=== PATIENT | female | born 1960 | race Caucasian/White ===

== ENCOUNTER 2017-10-06 22:41 | Emergency (ER) | payer MEDICAID, SELFPAY ==
[2017-10-06 22:43] VITALS: BP 135/61; PULSE 62; PULSE 65; RESP 14; TEMP 36.5; O2SAT 98; BMI 37.2
--- NOTE | 2017-10-06 23:12 | CT_ITS ---
STUDY: CT BRAIN WITHOUT CONTRAST REASON FOR EXAM: Female, 57 years old. Left facial numbness and blurry vision RADIATION DOSAGE (If Supplied By Facility): CTDIvol = ( 44.99 ) mGy, DLP = ( 796.11 ) mGycm TECHNIQUE: Transaxial CT imaging of the brain was performed without administration of intravenous contrast material. Individualized dose optimization techniques were used for this CT. COMPARISON: None. FINDINGS: Normal soft tissue structures. Normal calvarium. Normal size ventricles and extra-axial spaces for the patient's age. Normal white matter tracts of the cerebral hemispheres. Normal basal ganglia and thalami. Normal brainstem. Normal cerebellum. There is no intracranial hemorrhage. There are no findings of an acute ischemic infarction. There is an air-fluid level in the bilateral maxillary sinuses sphenoid sinuses ethmoid sinuses. There is an air-fluid level within the frontal sinuses. CT/Brain/Head without Contrast IMPRESSION: Mild to moderate acute appearing pansinusitis. No evidence of acute hemorrhage infarct or edema. Electronically Signed: Mary Gold MD at 0:00 EST Tel , Service support ,
--- NOTE | 2017-10-06 23:12 | EKG12_ITS ---
Test Reason : Blood Pressure : / mmHG Vent. Rate : 060 BPM Atrial Rate : 060 BPM P-R Int : 174 ms QRS Dur : 084 ms QT Int : 440 ms P-R-T Axes : 051 002 028 degrees QTc Int : 440 ms Normal sinus rhythm Normal ECG Confirmed by GEO SANDY, SREE ([id number]), magazine editor YUDELKA KLINE ([id number]) on 10/07/2017 1:45:05 PM Referred By: BENJI Confirmed By:SREE GUARDADO MD
--- NOTE | 2017-10-06 23:13 | RAD_ITS ---
STUDY: X-RAY CHEST REASON FOR EXAM: Female, 57 years old. Numbness right side face visual disturbance history of TIA TECHNIQUE: PA and lateral views of the chest. COMPARISON: April 28, 2014 chest x-ray FINDINGS: There is mild central bronchiectasis suggested. The lung markings are stable. There is no demonstrated pleural abnormality. There is borderline cardiomegaly. Normal mediastinum and ziggy. Normal visualized pulmonary arteries. Normal visualized aortic arch and descending thoracic aorta. There are diffuse degenerative changes of the visualized thoracic spine. Normal visualized ribs, clavicles, and shoulders. There is no demonstrated abnormality of the visualized soft tissue structures of the upper abdomen. RAD/Chest PA and Lateral IMPRESSION: Degenerative changes, as described above. No demonstrated acute cardiopulmonary process. Electronically Signed: Mary Gold MD at 0:10 EST Tel , Service support ,
[2017-10-06 23:22] VITALS: BP 135/75; PULSE 80; RESP 14; O2SAT 99
[2017-10-06 23:38] LABS: Absolute Lymphocyte Count 2.03 X10^3/ul (0.83-4.51); Absolute Neutrophil Count 0.9 X10^3/uL (2.0-7.7); Basophil# 0.03 X10^3/uL; Basophil% 0.9 % (0-1); Eosinophil# 0.11 X10^3/uL; Eosinophils% 3.2 % (0-5); Hematocrit 36.8 % (37-47); Hemoglobin 12.3 g/dl (12.0-15.0); Lymphocyte # 2.03 X10^3/ul (4.0); Mean Corp Hgb Conc 33.4 g/gl (32-36); Mean Corpuscular Hgb 28.7 pg (27.0-32.0); Mean Corpuscular Volume 85.8 fL (81-99); Mean Platelet Vol. 9.6 fl (6.2-12.0); Monocyte# 0.37 X10^3/uL; Monocyte% 10.8 % (0-10); Neutrophil % 26.1 % (47-70); Platelet Count 187 K/mm3 (150-450); RBC Distribution Width CV 13.5 % (11.6-14.6); RBC Distribution Width SD 41.5 fl (35.1-43.9); Red Blood Count 4.29 M/mm3 (4.2-5.4); White Blood Count 3.4 K/mm3 (4.4-11.0)
[2017-10-06 23:40] LABS: Differential Indicated SCAN CRITERIA MET; POSITIVE COUNT NO; POSITIVE DIFFERENTIAL YES; POSITIVE MORPHOLOGY NO
[2017-10-06 23:41] LABS: Prothrombin Time (Protime)PT. 12.3 SECONDS (11.7-14.9)
[2017-10-06 23:42] VITALS: BP 122/57; PULSE 62; RESP 15; O2SAT 98
[2017-10-06 23:42] LABS: Partial Thromboplast Time 28.1 Seconds (24.1-36.2)
[2017-10-07 00:04] LABS: Anion Gap 8 (5-15); BUN 7 mg/dL (7-18); BUN/Creat Ratio 14.1 RATIO (10-20); Calcium,Total 8.3 mg/dL (8.5-10.1); Chloride 105 mmol/L (98-107); EST Glomerular Filtration Rate 136 mL/min (>60); Est Glom Filt Rate - Afr Amer 164 mL/min (>60); Glucose 169 mg/dL (74-106); Potassium 3.7 mmol/L (3.5-5.1); Sodium Level 140 mmol/L (136-145)
[2017-10-07 00:12] VITALS: BP 125/64; PULSE 50; RESP 21; O2SAT 95
[2017-10-07 00:30] VITALS: BP 128/65; PULSE 63; RESP 17; O2SAT 98
[2017-10-07 01:00] VITALS: BP 131/65; PULSE 63; RESP 15; O2SAT 99
[2017-10-07 01:30] VITALS: BP 111/56; PULSE 64; RESP 19; O2SAT 96
--- NOTE | 2017-10-07 01:59 | ED.VISSUMM ---
- ER Visit Summary Date of Service: 10/07/17 Chief Complaint: Paresthesias History of Present Illness: The patient is a 57 F presenting after about 2 hours from the onset of numbness in her left lower face along with some blurry vision from her left eye. Lasted 30 or 40 minutes and resolved and is currently resolved. She has been fighting an upper respiratory infection for the past 8 days or so she thinks it is improving. Lots of congestion. No fevers. No problems with speech or weakness/numbness of any of her extremities. No diplopia. Physical Examination: Neurologic exam is normal. Her blood pressure is in the 120s. Heart is regular, no carotid bruits, lungs are clear. No signs of head trauma. PERRLA, EOMI. NIHSS is 0. Test Results: CT shows no signs of ischemic or hemorrhagic cerebral abnormalities, but does incidentally show pansinusitis including sphenoid sinuses and several sinuses with air-fluid levels. Her EKG shows a sinus rhythm without acute ischemic abnormalities or ectopy, and the rest of her workup is largely unremarkable. Emergency Department Course and Treatment: Her ABCD 2 score is 2, I discussed with neurology Dr. Forbes, he reassures this patient that this is not a TIA. He agrees with treating sinusitis with antibiotics. Patient can follow-up with medicine. She remained asymptomatic with regards to her neurologic symptoms throughout the rest of the ED course. I did attempt to obtain CT angiography but the patient refused secondary to anaphylactic reaction and she did not want to risk doing pretreatment, which I think is okay after my discussion with neurology. I suppose it is possible her paresthesias were related to some swelling due to her pansinusitis, although there is nothing objective there. Treatment Plan: Augmentin 875 twice daily ?10 days Disposition: Discharge home Impression: Pansinusitis Transient facial paresthesias This note was generated with [employer] dictation software. It may contain incorrect words, spelling, and punctuation that were not noted in review of the chart prior to signing ED Disposition - Plan for ED Patient: Disposition: Home or Assisted Living Chief Complaint: Neuro S/Sx Instructions: ED Sinusitis Abx Tx, ED Paraesthesias Prescriptions: Amoxicillin/Potassium Clav [Augmentin 875-125 Tablet] 1 ea PO BID #20 tab Referrals: Dhaval Huerta MD [Primary Care Provider] - 3-5 Days if not improving
[2017-10-07 02:00] VITALS: BP 124/58; PULSE 62; RESP 22; O2SAT 98
--- NOTE | 2017-10-07 02:09 | ED.DCSUM_ITS ---
- ER Visit Summary Date of Service: 10/07/17 Chief Complaint: Paresthesias History of Present Illness: The patient is a 57 F presenting after about 2 hours from the onset of numbness in her left lower face along with some blurry vision from her left eye. Lasted 30 or 40 minutes and resolved and is currently resolved. She has been fighting an upper respiratory infection for the past 8 days or so she thinks it is improving. Lots of congestion. No fevers. No problems with speech or weakness/numbness of any of her extremities. No diplopia. Physical Examination: Neurologic exam is normal. Her blood pressure is in the 120s. Heart is regular, no carotid bruits, lungs are clear. No signs of head trauma. PERRLA, EOMI. NIHSS is 0. Test Results: CT shows no signs of ischemic or hemorrhagic cerebral abnormalities, but does incidentally show pansinusitis including sphenoid sinuses and several sinuses with air-fluid levels. Her EKG shows a sinus rhythm without acute ischemic abnormalities or ectopy, and the rest of her workup is largely unremarkable. Emergency Department Course and Treatment: Her ABCD 2 score is 2, I discussed with neurology Dr. Forbes, he reassures this patient that this is not a TIA. He agrees with treating sinusitis with antibiotics. Patient can follow- up with medicine. She remained asymptomatic with regards to her neurologic symptoms throughout the rest of the ED course. I did attempt to obtain CT angiography but the patient refused secondary to anaphylactic reaction and she did not want to risk doing pretreatment, which I think is okay after my discussion with neurology. I suppose it is possible her paresthesias were related to some swelling due to her pansinusitis, although there is nothing objective there. Treatment Plan: Augmentin 875 twice daily ?10 days Disposition: Discharge home Impression: Pansinusitis Transient facial paresthesias This note was generated with [employer] dictation software. It may contain incorrect words, spelling, and punctuation that were not noted in review of the chart prior to signing ED Disposition - Plan for ED Patient: Disposition: Home or Assisted Living Chief Complaint: Neuro S/Sx Instructions: ED Sinusitis Abx Tx, ED Paraesthesias Prescriptions: Amoxicillin/Potassium Clav [Augmentin 875-125 Tablet] 1 ea PO BID #20 tab Referrals: Dhaval Huerta MD [Primary Care Provider] - 3-5 Days if not improving
[2017-10-07] MEDS: Amox/Clavulanate 875 MG Tablet PO (02:33)
[2017-10-07 02:35] VITALS: BP 122/67; PULSE 63; RESP 22; O2SAT 93
== END 2017-10-07 02:36 | disposition home or self-care (01) ==
PROVIDERS: Emergency Provider Emergency Medicine; Family Provider Internal Medicine; PCP Internal Medicine
DX: J32.4 Chronic pansinusitis (principal); R20.2 Paresthesia of skin; R05 Cough; R19.7 Diarrhea, unspecified; E11.9 Type 2 diabetes mellitus without complications; I10 Essential (primary) hypertension
CPT/HCPCS: 70450; 71046; 80048; 84484; 85025; 85610; 85730; 93005; 96360; 96361; 99284; J7030; J7040; A4216

== ENCOUNTER 2018-11-22 16:13 | Emergency (ER) | payer SELFPAY ==
[2018-11-22 16:15] VITALS: BP 160/80; PULSE 66; RESP 18; TEMP 36.5; O2SAT 99; BMI 36.4
[2018-11-22 16:20] VITALS: PULSE 72; RESP 16; TEMP 36.9; O2SAT 96
--- NOTE | 2018-11-22 16:35 | EKG12_ITS ---
Test Reason : CP Blood Pressure : / mmHG Vent. Rate : 077 BPM Atrial Rate : 077 BPM P-R Int : 164 ms QRS Dur : 084 ms QT Int : 398 ms P-R-T Axes : 050 -07 041 degrees QTc Int : 450 ms Normal sinus rhythm Normal ECG Confirmed by SREE GUARDADO MD ([id number]), advertising editor RONNY HAMMER ([id number]) on 11/24/2018 1:24:16 PM Referred By: NURIS Confirmed By:SREE GUARDADO MD
--- NOTE | 2018-11-22 16:35 | RAD_ITS ---
STUDY: X-RAY CHEST REASON FOR EXAM: Female, 58 years old. Chest pain x2 days, increasing in intensity TECHNIQUE: Single AP portable view of the chest. COMPARISON: Prior study of October 06, 2017 FINDINGS: panel monitor leads are present. The lungs are clear and expanded. There is no demonstrated pleural abnormality. Normal size heart. Normal mediastinum and ziggy. Normal visualized pulmonary arteries. Normal visualized aortic arch and descending thoracic aorta. There are degenerative changes of the thoracic spine. Normal visualized ribs, clavicles, and shoulders. There is no demonstrated abnormality of the visualized soft tissue structures of the upper abdomen. RAD/Chest 1 View (Portable) IMPRESSION: Degenerative changes of the thoracic spine. No acute cardiopulmonary disease process is seen. Electronically Signed: Levi Rowe MD at 17:49 EDT , Service support ,
--- NOTE | 2018-11-22 16:36 | ED.VISSUMM ---
- ER Visit Summary Date of Service: 11/22/18 Chief Complaint: Chest pain History of Present Illness: The patient is a 58 F who reports onset of chest heaviness last evening while she was sitting at rest. She describes it to the left mid chest radiating up towards her left shoulder and down the left arm. She does state pain is worse with palpation, but also states it is worse with exertion and she gets dyspneic with exertion. She denies any recent change in activity or injury. Past history significant for diabetes, hypertension, high cholesterol. She believes her last heart cath was greater than 10 years ago. She has not had a stress test in the interval period. Physical Examination: Vital signs significant for blood pressure 160/80, otherwise unremarkable. Patient sitting upright in bed no acute distress. Head and neck examination unremarkable. Heart is regular rate and rhythm. Lung sounds are clear. She does have tenderness in the left lower parasternal region.. Abdomen is soft nontender. Extremity examination was mild muscular tenderness in the left upper arm. She has strong distal pulses and normal sensation. Test Results: EKG is sinus at 77 with no sign of acute ischemia. Portable chest x-ray shows degenerative changes in the thoracic spine. There is no acute cardiopulmonary disease. CBC and chemistry studies remarkable only for glucose of 152. Troponin is less than 0.015. Emergency Department Course and Treatment: Patient was given aspirin on arrival. On repeat evaluation she is resting comfortable. She states she does still have some pain. Her chest pain is completely reproducible with palpation of the musculature. 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 She believes a lot of this is anxiety related. The patient has had greater than 6 hours of pain with negative enzymes and EKG. Pain is reproducible I do feel she is low risk at this point. She is comfortable with discharge to home and follow-up with her primary care physician. If her pain worsens in any way or she has any other concerns she will return immediately. Treatment Plan: [] Disposition: Discharge Impression: Chest wall pain This note was generated with [employer] dictation software. It may contain incorrect words, spelling, and punctuation that were not noted in review of the chart prior to signing ED Disposition - Plan for ED Patient: Referrals: Dhaval Huerta MD [Primary Care Provider] -
[2018-11-22] MEDS: 0.9% Normal Saline 1,000 ML 150 ML IV (16:41)
[2018-11-22] MEDS: Aspirin 81 MG TAB.CHEW 324 MG PO (16:41)
[2018-11-22 16:47] LABS: Absolute Lymphocyte Count 2.96 X10^3/ul (0.83-4.51); Absolute Neutrophil Count 3.5 X10^3/uL (2.0-7.7); Basophil# 0.04 X10^3/uL; Basophil% 0.6 % (0-1); Eosinophil# 0.22 X10^3/uL; Eosinophils% 3.1 % (0-5); Hematocrit 41.3 % (37-47); Hemoglobin 14.2 g/dl (12.0-15.0); Lymphocyte # 2.96 X10^3/ul (4.0); Lymphocyte % 41.3 % (19-41); Mean Corp Hgb Conc 34.4 g/gl (32-36); Mean Corpuscular Hgb 28.6 pg (27.0-32.0); Mean Corpuscular Volume 83.3 fL (81-99); Mean Platelet Vol. 9.3 fl (6.2-12.0); Monocyte# 0.47 X10^3/uL; Monocyte% 6.6 % (0-10); Neutrophil # 3.45 X10^3/uL (2.7-7.7); Neutrophil % 48.1 % (47-70); POSITIVE COUNT NO; POSITIVE DIFFERENTIAL NO; POSITIVE MORPHOLOGY NO; Platelet Count 247 K/mm3 (150-450); RBC Distribution Width CV 13.6 % (11.6-14.6); Red Blood Count 4.96 M/mm3 (4.2-5.4); White Blood Count 7.2 K/mm3 (4.4-11.0)
[2018-11-22 16:59] LABS: Anion Gap 5 (5-15); BUN 9 mg/dL (7-18); BUN/Creat Ratio 14.1 RATIO (10-20); Calcium,Total 8.8 mg/dL (8.5-10.1); Chloride 106 mmol/L (98-107); Creatinine, Serum 0.64 mg/dL (0.55-1.02); EST Glomerular Filtration Rate 101 mL/min (>60); Est Glom Filt Rate - Afr Amer 123 mL/min (>60); Estimated Creatinine Clearance 82.74 ml/min; Glucose 152 mg/dL (74-106); Potassium 3.5 mmol/L (3.5-5.1); Sodium Level 138 mmol/L (136-145)
[2018-11-22 17:23] VITALS: BP 123/82; PULSE 58; RESP 16; O2SAT 97
--- NOTE | 2018-11-22 18:03 | ED.DEP ---
ED Disposition - Plan for ED Patient: Disposition: Home or Assisted Living Instructions: ED Strain Chest Wall Referrals: Dhaval Huerta MD [Primary Care Provider] - As soon as possible
[2018-11-22 18:09] VITALS: BP 134/66; PULSE 82; RESP 16; O2SAT 98
== END 2018-11-22 18:10 | disposition home or self-care (01) ==
PROVIDERS: Emergency Provider Emergency Medicine; Family Provider Internal Medicine; PCP Internal Medicine
DX: R07.89 Other chest pain (principal); E11.9 Type 2 diabetes mellitus without complications; I10 Essential (primary) hypertension; E78.00 Pure hypercholesterolemia, unspecified; Z86.73 Personal history of transient ischemic attack (TIA), and cerebral infarction without residual deficits
CPT/HCPCS: 71045; 80048; 84484; 85025; 93005; 96360; 96361; 99285

== ENCOUNTER → 2019-02-11 13:31 | Outpatient (CLI) | payer SELFPAY ==
--- NOTE | 2019-02-11 13:36 | BI_ITS ---
MAMMOGRAPHY - BILATERAL SCREENING 3-D TOMOSYNTHESIS REASON FOR EXAM: Female, 58 years old. Bilateral Screening 3-D tomosynthesis PERTINENT HISTORY: No significant family history. TECHNIQUE: 2-D mammograms and 3-D Tomosynthesis of the breast (s) were performed. CAD was performed. COMPARISON: April 09, 2018. FINDINGS: The breast composition is of scattered fibroglandular tissue No evidence of spiculated lesion, microcalcifications, skin thickening or nipple retraction. There are benign-appearing lymph nodes noted in the axillary areas bilaterally. Tiny benign calcifications seen in the left breast BI/SCREEN MAMM (CAD) W/HONEY BILAT IMPRESSION: No mammographic signs of malignancy. Routine yearly mammograms recommended. ASSESSMENT CATEGORY: BIRADS Category 1: Negative. A letter regarding these results will be sent to the patient by the facility within 30 days. No change since the study of April 09, 2018. FOLLOW UP RECOMMENDATION: Yearly follow up mammogram recommended. (A) Approximately 10% of breast cancers are not detected by mammography. A normal mammogram should not delay biopsy of a clinically suspicious abnormality. Electronically Signed: Kofi Yan, at 11:48 EDT Tel , Service support ,
== END ==
DX: Z12.31 Encounter for screening mammogram for malignant neoplasm of breast (principal)
CPT/HCPCS: 77063; 77067

== ENCOUNTER 2020-01-07 14:11 | Emergency (ER) | payer MEDICAID, SELFPAY ==
[2020-01-07 14:12] VITALS: BP 160/75; PULSE 65; RESP 16; TEMP 36.7; O2SAT 97; BMI 35.9
--- NOTE | 2020-01-07 14:25 | CT_ITS ---
STUDY: CT ABDOMEN AND PELVIS WITHOUT CONTRAST REASON FOR EXAM: Female, 59 years old. Abdominal pain for 2 weeks. Loose stool for 2 days. Patient not improving. RADIATION DOSAGE (If Supplied By Facility): CTDIvol = ( 22.27 ) mGy, DLP = ( 1056.97 ) mGycm TECHNIQUE: Transaxial images were obtained from the dome of the diaphragm to the symphysis pubis without oral contrast, and without intravenous contrast. Sagittal and coronal images were reconstructed. Individualized dose optimization techniques were used for this CT. COMPARISON: April 15, 2013. FINDINGS: The visualized lung bases are unremarkable. The visualized portions of the heart are within normal limits. Normal liver. The gallbladder is nonvisualized and is thought absent. There is mild extrahepatic biliary ductal dilatation, suggestive of postcholecystectomy state. Normal spleen. Normal pancreas. Normal right adrenal gland. There is slight prominence of the left adrenal gland without distinct mass. This is unchanged from the previous exam. Normal right kidney. Normal left kidney. Normal bilateral ureters. Normal visualized stomach. Normal small intestine. There is lack of distention on the distal descending and sigmoid colon. The colon is otherwise unremarkable. The appendix is visualized and appears normal. There is diffuse atherosclerotic calcification of the abdominal aorta, without a demonstrated aneurysm. Normal inferior vena cava. Normal retroperitoneum. Normal urinary bladder. Normal vaginal cuff. There is a retained left ovary. There is resolution of the prominence seen on the previous exam. There are multiple phleboliths in the pelvis without lymphadenopathy. No free air or free fluid is seen within the peritoneal cavity. Normal abdominal wall. There are diffuse degenerative changes of the visualized lumbar spine. CT/Abdomen/Pelvis without Cont IMPRESSION: 1. Nondistention of the distal descending and sigmoid colon. Possible mild colitis cannot be ruled out. 2. Resolution of the prominence and heterogeneity of the left retained ovary when compared to the previous study. 3. No other evidence of acute intra-abdominal or pelvic abnormality. There is no other major interval change. Electronically Signed: Tyrone Wolfe DO at 16:53 EDT Tel [phone], Service support ,
--- NOTE | 2020-01-07 14:41 | ED.VIS.GEN ---
History of Present Illness Chief Complaint: Abd Pain Informant: Patient Onset: Weeks Context: Gradual Onset Timing: Intermittent Current Severity: Moderate Maximum Severity: Moderate Narrative: The patient is a 59-year-old female with medical history significant for prior sciatica and neuropathy that presents to the emergency department with abdominal pain. Patient states she was having some left lower quadrant pain into her hip about 2 weeks ago. She went to the [facility]. She states that she was started on meloxicam and gabapentin. She states that the pain really did not change. She states now, she is had 2 days of loose, watery diarrhea. She denies any fevers or chills. She does admit to some bloating and cramping pain. She states is mostly in the upper quadrants. She has had prior cholecystectomy, along with hysterectomy. She does not think she is ever diverticulitis. Prior similar symptoms: No Recent Illness/Hospitalization: No Past Medical History - Allergies and Home Meds Allergies/Adverse Reactions: Allergies codeine Allergy (Verified 01/07/20 15:25) Rash ibuprofen Allergy (Verified 10/06/17 22:42) Rash shellfish derived Allergy (Verified 10/06/17 22:42) Anaphylaxis Sulfa (Sulfonamide Antibiotics) Allergy (Verified 10/06/17 22:42) Anaphylaxis strawberry [[place]] Adverse Reaction (Verified 10/06/17 22:42) Rash Primary Care Physician: Meravt Orantes [Primary Care Provider] - Prior records reviewed: Yes Past Medical History: - - DM. HTN Surgical History: cholecystectomy, hysterectomy Smoking Status: Never smoker Review of Systems General: Denies: Chills, Fever, Sweats Eyes: Denies: Visual changes - bilaterally, Diplopia ENT: Denies: Rhinorrhea, Sore throat Cardiovascular: Denies: Chest pain, Palpitations Respiratory: Denies: Dyspnea, Cough, Dyspnea on exertion Gastrointestinal: Reports: Abdominal pain, Nausea, Diarrhea. Denies: Vomiting, Melena, Hematochezia Genitourinary: Denies: Dysuria, Hematuria, Frequency Musculoskeletal: Denies: Back pain, Extremity Pain Skin: Denies: Rash, Wounds Neurological: Denies: Headache, Weakness, Numbness Physical Exam Vital Signs/Narrative: Vital Signs Temp Pulse Resp BP Pulse Ox 01/07/20 14:12 98.1 F 65 16 160/75 H 97 Inital Vital Signs reviewed: Yes General: Well nourished, Well developed, No Acute Distress Head: Normocephalic, Atraumatic Eyes: Perrl, EOMI ENT: Moist mucous membranes, No rhinorrhea Neck: Supple, Nontender Cardiovascular: Regular rate, Regular rhythm, No murmurs Respiratory: No distress, CTA bilaterally, Chest nontender Abdomen: Soft, Nondistended, Normal bowel sounds, Tender. Negative for: Guarding, Rebound tenderness Back: Nontender, Normal Inspection Extremities: Nontender, No edema Skin: Normal color, No rash Neurological: Alert, Oriented x3, Cranial nerves II-XII grossly intact, Normal Strength, Normal Sensation Psychological: Normal affect, Normal Mood Diagnostic/Tx/Re-eval Clinical Impression(s) from Imaging Studies Abdomen/Pelvis CT 01/07/20 14:25 IMPRESSION: 1. Nondistention of the distal descending and sigmoid colon. Possible mild colitis cannot be ruled out. 2. Resolution of the prominence and heterogeneity of the left retained ovary when compared to the previous study. 3. No other evidence of acute intra-abdominal or pelvic abnormality. There is no other major interval change. Electronically Signed: Tyrone Wolfe DO at 16:53 EDT Tel [phone], Service support , Abnormal Lab Results 01/07/20 01/07/20 01/07/20 15:10 15:15 15:15 WBC 7.3 RBC 4.87 Hgb 13.5 Hct 40.8 MCV 83.8 MCH 27.7 MCHC 33.1 RDW Std Deviation 40.9 RDW Coeff of Nael 13.4 Plt Count 235 MPV 9.7 Immature Gran % (Auto) 0.400 Neut % (Auto) 41.1 L Lymph % (Auto) 44.5 H [place] % (Auto) 8.7 Eos % (Auto) 4.5 Baso % (Auto) 0.8 Absolute Neuts (auto) 3.0 Absolute Lymphs (auto) 3.26 Nucleated RBC % 0 Sodium 139 Potassium 4.3 Chloride 105 Carbon Dioxide 26.0 Anion Gap 8 BUN 11 Creatinine 0.64 Estim Creat Clear Calc 81.73 Est GFR (MDRD) Af Amer 123 Est GFR (MDRD) Non-Af 101 BUN/Creatinine Ratio 17.3 Glucose 118 H Calcium 9.4 Total Bilirubin 0.70 AST 32 ALT 46 Alkaline Phosphatase 84 Total Protein 7.9 Albumin 3.8 Globulin 4.1 Albumin/Globulin Ratio 0.9 Lipase 108 Urine Color Straw Urine Clarity Clear Urine pH 6.0 Ur Specific [place] 1.015 Urine Protein Negative Urine Glucose (UA) Normal Urine Ketones Negative Urine Occult Blood Negative Urine Nitrite Positive H Urine Bilirubin Negative Urine Urobilinogen Normal Ur Leukocyte Esterase Negative Urine RBC 0 SEEN Urine WBC 0-5 SEEN Ur Squamous Epith Cells 0-5 SEEN Urine Bacteria 2+ Urine Mucus 0 SEEN - Medical Decision Making Patient presents with intermittent abdominal pain, mostly in her left lower quadrant. She does not think she is had fever. She did have loose, watery diarrhea yesterday. Screening labs were obtained and were relatively unremarkable. Patient underwent CT which was concerning for mild colitis. The patient's abdominal pain is controlled. She has no repeat tenderness on examination. I do feel that she is safe for outpatient therapy. She will be started on Cipro and Flagyl. She was counseled on concerning symptoms and reasons to return. She will be discharged home. Impression 1. Colitis ED Disposition - Plan for ED Patient: Instructions: ED Diverticulitis Prescriptions: Ciprofloxacin [Cipro] 500 mg PO BID #14 tab Prescription Printed metroNIDAZOLE [Flagyl] 500 mg PO Q8H #21 tab Prescription Printed Referrals: Mervat Orantes [Primary Care Provider] -
[2020-01-07 15:23] LABS: Mucous, Urine 0 SEEN /hpf (<or=2+); Red Blood Cells-Urine 0 SEEN /hpf (0-5)
[2020-01-07 15:26] LABS: Absolute Lymphocyte Count 3.26 X10^3/uL (0.83-4.51); Basophil# 0.06 X10^3/uL; Basophil% 0.8 % (0-1); Eosinophil# 0.33 X10^3/uL; Eosinophils% 4.5 % (0-5); Hematocrit 40.8 % (37-47); Hemoglobin 13.5 g/dL (12.0-15.0); Lymphocyte # 3.26 X10^3/ul (4.0); Lymphocyte % 44.5 % (19-41); Mean Corp Hgb Conc 33.1 g/dL (32-36); Mean Corpuscular Hgb 27.7 pg (27.0-32.0); Mean Corpuscular Volume 83.8 fL (81-99); Mean Platelet Vol. 9.7 fl (6.2-12.0); Monocyte# 0.64 X10^3/uL; Monocyte% 8.7 % (0-10); NRBC Flagged by Analyzer 0 % (0-5); Neutrophil % 41.1 % (47-70); Platelet Count 235 K/mm3 (150-450); RBC Distribution Width CV 13.4 % (11.6-14.6); RBC Distribution Width SD 40.9 fl (35.1-43.9); Red Blood Count 4.87 M/mm3 (4.2-5.4); White Blood Count 7.3 K/mm3 (4.4-11.0)
[2020-01-07] MEDS: 0.9% Normal Saline 1,000 ML 1000 ML IV (15:42)
[2020-01-07] MEDS: Ondansetron 4 MG/2 ML Vial IV (15:43)
[2020-01-07] MEDS: Morphine 4 MG/ML Syringe IV (15:43)
[2020-01-07 15:58] LABS: Color, Urine Straw (Yellow); Glucose, Dipstick Normal (Normal); Ketone-Dipstick Negative (Negative); Leukocyte Esterase-Dipstick Negative /ul (Negative); Nitrite-Dipstick Positive (Negative); Occult Blood-Urine Negative /ul (Negative); Protein-Dipstick Negative (Negative); Specific Gravity, Urine 1.015 (1.002-1.030); Urine Bilirubin Dipstick Negative (Negative); Urine Clarity Clear (Clear); Urine Urobilinogen Normal (Normal)
[2020-01-07 16:04] LABS: ALB/GLOB Ratio 0.9 RATIO (0.9-2.4); AST(SGOT) 32 U/L (15-37); Alanine Aminotransfer ALT/SGPT 46 U/L (13-56); Albumin, Serum 3.8 g/dL (3.2-5.0); Alkaline Phosphatase 84 U/L (45-117); Anion Gap 8 (5-15); BUN 11 mg/dL (7-18); BUN/Creat Ratio 17.3 RATIO (10-20); Calcium,Total 9.4 mg/dL (8.5-10.1); Chloride 105 mmol/L (98-107); Creatinine, Serum 0.64 mg/dL (0.55-1.02); EST Glomerular Filtration Rate 101 mL/min (>60); Est Glom Filt Rate - Afr Amer 123 mL/min (>60); Estimated Creatinine Clearance 81.73 ml/min; Globulin 4.1 g/dL (2.2-4.2); Glucose 118 mg/dL (74-106); Lipase 108 U/L (73-393); Potassium 4.3 mmol/L (3.5-5.1); Protein, Total 7.9 g/dL (6.4-8.2); Sodium Level 139 mmol/L (136-145)
[2020-01-07 16:24] LABS: Squamous Epithelial Cells - UA 0-5 SEEN /hpf (5-10)
[2020-01-07 16:25] LABS: White Blood Cells 0-5 SEEN /hpf (0-5)
[2020-01-07 16:26] LABS: Bacteria 2+ /hpf (None Seen)
[2020-01-07 17:31] VITALS: BP 136/72; PULSE 58; RESP 16; O2SAT 99
== END 2020-01-07 17:52 | disposition home or self-care (01) ==
PROVIDERS: Emergency Provider Emergency Medicine
DX: K52.9 Noninfective gastroenteritis and colitis, unspecified (principal); E11.9 Type 2 diabetes mellitus without complications; I10 Essential (primary) hypertension; Z88.2 Allergy status to sulfonamides; Z90.49 Acquired absence of other specified parts of digestive tract; Z90.710 Acquired absence of both cervix and uterus
CPT/HCPCS: 74176; 80053; 81001; 83690; 85025; 96361; 96374; 96375; 99284; A4216; J2405

== ENCOUNTER → 2020-03-29 10:17 | Outpatient (CLI) | payer MEDICAID, SELFPAY ==
[2020-03-17 10:00] VITALS: BMI 35.9
[2020-03-29 11:39] LABS: ALB/GLOB Ratio 0.9 RATIO (0.9-2.4); AST(SGOT) 17 U/L (15-37); Alanine Aminotransfer ALT/SGPT 36 U/L (13-56); Albumin, Serum 3.7 g/dL (3.2-5.0); Alkaline Phosphatase 91 U/L (45-117); Anion Gap 9 (5-15); BUN 10 mg/dL (7-18); BUN/Creat Ratio 16.6 RATIO (10-20); Calcium,Total 8.7 mg/dL (8.5-10.1); Chloride 104 mmol/L (98-107); Cholesterol 282 mg/dL (200); EST Glomerular Filtration Rate 108 mL/min (>60); Est Glom Filt Rate - Afr Amer 130 mL/min (>60); Glucose 148 mg/dL (74-106); High Density Lipoprotein 34 mg/dL; Potassium 3.9 mmol/L (3.5-5.1); Protein, Total 7.7 g/dL (6.4-8.2); Sodium Level 139 mmol/L (136-145); Triglycerides 927 mg/dL
[2020-03-29 11:44] LABS: Hemoglobin A1c 7.2 % (3.8-5.6)
== END ==
PROVIDERS: Visit Provider Nurse Practitioner Family
DX: E11.42 Type 2 diabetes mellitus with diabetic polyneuropathy (principal)
CPT/HCPCS: 36415; 80053; 80061; 83036

== ENCOUNTER → 2020-06-27 08:09 | Outpatient (CLI) | payer MEDICAID, SELFPAY ==
[2020-03-17 10:00] VITALS: BMI 35.9
[2020-06-27 09:30] LABS: Hemoglobin A1c 8.2 % (3.8-5.6)
[2020-06-27 09:35] LABS: Vitamin D,25 Hydroxy 24.2 ng/mL
[2020-06-27 09:37] LABS: ALB/GLOB Ratio 0.9 RATIO (0.9-2.4); AST(SGOT) 26 U/L (15-37); Alanine Aminotransfer ALT/SGPT 47 U/L (13-56); Albumin, Serum 3.7 g/dL (3.2-5.0); Alkaline Phosphatase 107 U/L (45-117); Anion Gap 7 (5-15); BUN 10 mg/dL (7-18); BUN/Creat Ratio 16.1 RATIO (10-20); Chloride 105 mmol/L (98-107); Cholesterol 241 mg/dL (200); Creatinine, Serum 0.62 mg/dL (0.55-1.02); EST Glomerular Filtration Rate 104 mL/min (>60); Est Glom Filt Rate - Afr Amer 126 mL/min (>60); Globulin 4.2 g/dL (2.2-4.2); Glucose 183 mg/dL (74-106); High Density Lipoprotein 43 mg/dL; Potassium 3.9 mmol/L (3.5-5.1); Protein, Total 7.9 g/dL (6.4-8.2); Sodium Level 140 mmol/L (136-145); Triglycerides 568 mg/dL
== END ==
PROVIDERS: Nurse Practitioner Family
DX: E11.42 Type 2 diabetes mellitus with diabetic polyneuropathy (principal)
CPT/HCPCS: 36415; 80053; 80061; 82306; 83036

== ENCOUNTER 2022-01-01 12:31 | Emergency (ER) | payer MEDICAID, SELFPAY ==
[2022-01-01 12:32] VITALS: BP 154/70; PULSE 73; RESP 16; TEMP 36.6; O2SAT 97; BMI 36.0
--- NOTE | 2022-01-01 12:51 | CT_ITS ---
STUDY: CT ABDOMEN AND PELVIS WITHOUT CONTRAST REASON FOR EXAM: Female, 61 years old. RUQ pain -- hx cholecystectomy, N/V/D RADIATION DOSAGE (If Supplied By Facility): CTDIvol = ( 21.81 ) mGy, DLP = ( 1040.81 ) mGycm TECHNIQUE: Transaxial images were obtained from the dome of the diaphragm to the symphysis pubis without oral contrast, and without intravenous contrast. Sagittal and coronal images were reconstructed. Individualized dose optimization techniques were used for this CT. COMPARISON: Comparison is made with prior study dated 01/07/2020. FINDINGS: The visualized lung bases are unremarkable. Coronary artery calcification. There is decreased attenuation of the liver consistent with steatosis. The patient is status post cholecystectomy. Normal spleen. Normal pancreas. Normal bilateral adrenal glands. Normal right kidney. Normal left kidney. Normal visualized stomach. Normal small intestine. Normal colon. There is non-visualization of the appendix. There is scattered atherosclerotic calcification of the abdominal aorta, without a demonstrated aneurysm. Normal inferior vena cava. Normal retroperitoneum. Normal urinary bladder. There is absence of the uterus consistent with a prior hysterectomy. Calcified phleboliths are seen in the pelvis. Normal abdominal wall. There are diffuse degenerative changes of the visualized lumbar spine. CT/Abdomen/Pelvis without Cont IMPRESSION: Diffuse fatty infiltration of the liver. Electronically Signed: Vinicio Webb MD at 13:45 EDT ,
--- NOTE | 2022-01-01 12:58 | ED.VIS.GI ---
HPI HPI - GI History of Present Illness Chief Complaint: Abd Pain Informant: patient Narrative Narrative: Waxing and waning right-sided upper abdominal pain starting 3 days ago worsening since yesterday. Nausea and vomiting no hematemesis total 2 episodes. Diarrhea since yesterday loose and watery and clear. Nonbloody. 5 yesterday for today. Denies recent antibiotics. History of cholecystectomy. History of partial hysterectomy. No fevers. No urinary symptoms. States unable to keep anything down. No history of colonoscopy. 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 Has not ever had IV dye in the past per patient. Hypertension, diabetes, hyperlipidemia history. Prior similar symptoms: No PFSH PFSH Medical History Abdominal pain Arthritis Diabetes Diarrhea Hypertension LUQ abdominal pain Numbness and tingling Sciatica Home Medications lisinopril 20 mg PO DAILY 04/28/14 [History Last Taken 11/22/18] metformin 1,000 mg PO BIDCM 04/28/14 [History Last Taken 11/22/18] gabapentin 100 mg PO QHS 01/07/20 [History Last Taken Unknown] acetaminophen 500 mg tablet 1,000 mg PO QHS PRN tab 03/17/20 [History Last Taken Unknown] atorvastatin 40 mg tablet 40 mg PO DAILY tab 03/17/20 [History Last Taken Unknown] ergocalciferol (vitamin D2) 1,250 mcg (50,000 unit) capsule 50,000 unit PO QWEEK cap 03/17/20 [History Last Taken Unknown] hyoscyamine sulfate [Levsin/SL] 0.125 mg PO TID PRN #10 tab 01/01/22 [Rx Last Taken Unknown] ondansetron 4 mg PO Q6H PRN #10 tab 01/01/22 [Rx Last Taken Unknown] pioglitazone [Actos] 15 mg PO DAILY 01/01/22 [History Last Taken Unknown] Allergy/AdvReac Type Severity Reaction Status Date / Time Penicillins Allergy Unknown Unknown Verified 01/01/22 12:33 codeine Allergy Rash Verified 01/01/22 12:33 ibuprofen Allergy Rash Verified 01/01/22 12:33 shellfish derived Allergy Anaphylaxis Verified 01/01/22 12:33 Sulfa (Sulfonamide Allergy Anaphylaxis Verified 01/01/22 12:33 Antibiotics) strawberry [[place]] AdvReac Rash Verified 01/01/22 12:33 Family History Mother Diabetes Father Diabetes Sister Diabetes Surgical History History of partial hysterectomy Hx of cholecystectomy Social History Smoking Status: Never smoker second hand exposure: No alcohol intake: never substance use type: does not use caffeine: Yes what type of physical activity do you participate in: none frequency: does not exercise ROS ROS ED Constitutional Constitutional ED: Denies chills, fever(s) or sweats Eyes Eyes: Denies change in vision ENT ENT ED: Denies dysphagia or sore throat Cardiovascular Cardiovascular: Denies chest pain, leg edema, palpitations or racing heartbeat Respiratory/Chest Respiratory/Chest: Denies cough, dyspnea or dyspnea on exertion Gastrointestinal Gastrointestinal: Reports abdominal pain, diarrhea, nausea and vomiting Genitourinary Genitourinary ED: Denies dysuria, hematuria or urinary frequency Musculoskeletal Musculoskeletal: Denies back pain, extremity pain or neck pain Integumentary Denies rash or wounds Neurologic Neurologic: Denies headache(s), paresthesias or weakness EXAM Physical Exam Const Vital Signs: 01/01/22 12:32 01/01/22 13:39 01/01/22 14:13 Temperature 97.9 F Temperature Source Temporal Pulse Rate 73 83 81 Respiratory Rate 16 16 18 Blood Pressure 154/70 H 144/73 H 134/59 H Blood Pressure Mean 98 96 Pulse Ox 97 95 97 Oxygen Delivery Method Room Air Room Air Positive well nourished and well developed General Appearance ED: well developed and NAD HEENT Reports dry mucous membranes HEENT Narrative: Mild dry mucosal membranes normocephalic and atraumatic Mouth ED: Yes dry mucous membranes Mouth: dry mucous membranes Eyes PERRL, EOMs intact bilaterally and conjunctivae normal General Eye ED: Yes normal appearance of both eyes Neck no lymphadenopathy and supple General: Negative for tenderness Chest Wall Chest: Negative for tenderness Resp normal respiratory effort and normal air movement Effort and Inspection: symmetric chest movement; Negative for respiratory distress Cardio regular rate, regular rhythm and no murmurs Peripheral Pulses: pulses 2+ throughout GI normal to inspection, nondistended, normoactive bowel sounds GI Narrative: tender deep palpation right upper quadrant there is no guarding or rebound no rash. Negative McBurney's. No guarding or rebound. Palpation: Negative for guarding or rebound tenderness present Back/Spine no CVA tenderness and no thoracic nor lumbar tenderness Extremity normal to inspection General Extremety ED: Negative for edema or tenderness General Extremity: Negative for edema Neuro oriented x3 and no sensory deficits noted Sensorium / Orientation: awake and alert Skin no rashes or lesions noted and no wounds MDM MDM MDM Narrative Medical decision making narrative: Patient vital stable nontoxic no guarding or rebound on abdominal exam. Vomiting and diarrhea CT scan obtained to rule out colitis. This is negative. There was a fatty liver. Denies alcohol history. Labs slight transaminitis AST 70 ALT 282. White count 4. Urine noted signs of infection however he is asymptomatic. We will send culture and will hold on treatment this time. Patient tolerating p.o. intake after treatment Zofran and Levsin. Prescription for symptom control. Follow-up with her PCP. All questions were answered. Lab Data Attestation: I reviewed the patient's lab results. Labs: Laboratory Results - last 24 hr 01/01/22 01/01/22 01/01/22 13:00 13:00 13:30 WBC 4.0 L RBC 4.80 Hgb 13.4 Hct 40.9 MCV 85.2 MCH 27.9 MCHC 32.8 RDW Std Deviation 44.1 H RDW Coeff of Nael 14.2 Plt Count 178 MPV 9.7 Immature Gran % (Auto) 0.200 Neut % (Auto) 51.2 Lymph % (Auto) 38.2 [place] % (Auto) 8.2 Eos % (Auto) 2.0 Baso % (Auto) 0.2 Absolute Neuts (auto) 2.1 Absolute Lymphs (auto) 1.54 Nucleated RBC % 0 Sodium 138 Potassium 4.4 Chloride 107 Carbon Dioxide 24.0 Anion Gap 7 BUN 10 Creatinine 0.70 Estim Creat Clear Calc 72.88 Est GFR (MDRD) Af Amer 108 Est GFR (MDRD) Non-Af 90 BUN/Creatinine Ratio 14.2 Glucose 216 H Calcium 8.7 Total Bilirubin 0.50 AST 70 H ALT 82 H Alkaline Phosphatase 80 Total Protein 7.7 Albumin 3.6 Globulin 4.1 Albumin/Globulin Ratio 0.9 Lipase 128 Urine Color Yellow Urine Clarity Clear Urine pH 5.0 Ur Specific [place] 1.020 Urine Protein 30 H Urine Glucose (UA) 100 H Urine Ketones Negative Urine Occult Blood 10 H Urine Nitrite Negative Urine Bilirubin Negative Urine Urobilinogen Normal Ur Leukocyte Esterase 100 H Urine RBC 0-5 SEEN Urine WBC 25-50 SEEN Ur Squamous Epith Cells 5-10 SEEN Urine Bacteria 4+ Hyaline Casts 0-5 SEEN Urine Mucus 0 SEEN Radiography Diagnostic Testing: Clinical Impression(s) from Imaging Studies Abdomen/Pelvis CT 01/01/22 12:51 IMPRESSION: Diffuse fatty infiltration of the liver. Electronically Signed: Vinicio Webb MD at 13:45 EDT , Discharge Plan Triage Chief Complaint: Abd Pain ED Provider: Nico Kapoor Dx/Rx/DC Orders Clinical Impression: Nausea vomiting and diarrhea, Abdominal pain, Transaminitis, Fatty liver Instructions: Abdominal Pain, Nonalcoholic Fatty Liver ..., ED Vomiting and Diarrhea ... Prescriptions: New hyoscyamine sulfate [Levsin/SL] 0.125 mg tablet, sublingual 0.125 mg PO TID PRN (Reason: abdominal discomfort) Qty: 10 RF: 0 ondansetron 4 mg tablet,disintegrating 4 mg PO Q6H PRN (Reason: nausea and vomiting) Qty: 10 RF: 0 No Action ergocalciferol (vitamin D2) 1,250 mcg (50,000 unit) capsule 50,000 unit PO QWEEK RF: 0 atorvastatin 40 mg tablet 40 mg PO DAILY RF: 0 acetaminophen [Tylenol Extra Strength] 500 mg tablet 1,000 mg PO QHS PRN (Reason: Pain) RF: 0 metformin 500 MG tablet 1,000 mg PO BIDCM RF: 0 lisinopril 10 MG tablet 20 mg PO DAILY RF: 0 gabapentin 100 MG capsule 100 mg PO QHS RF: 0 pioglitazone [Actos] 15 mg Tablet 15 mg PO DAILY RF: 0 Primary Care Provider: Dhaval Huerta Referrals: Dhaval Huerta MD [Primary Care Provider] - 3-5 Days Activity Restrictions/Additional Instructions: AST 70, ALT 82. Slightly elevated. CT scan notes fatty liver. No other acute findings. Continue oral fluids at home Zofran as needed Levsin as needed. Follow-up with your doctor for further testing as an outpatient as needed. Disposition Disposition: Home, Self Care Discharge Date/Time: 01/01/22 14:21
[2022-01-01] MEDS: 0.9% Normal Saline 1,000 ML 1000 ML IV (13:03)
[2022-01-01 13:12] LABS: Absolute Lymphocyte Count 1.54 X10^3/uL (0.83-4.51); Absolute Neutrophil Count 2.1 X10^3/uL (2.0-7.7); Basophil# 0.01 X10^3/uL; Basophil% 0.2 % (0-1); Eosinophil# 0.08 X10^3/uL; Hematocrit 40.9 % (37-47); Hemoglobin 13.4 g/dL (12.0-15.0); Lymphocyte # 1.54 X10^3/ul (0.83-4.51); Lymphocyte % 38.2 % (19-41); Mean Corp Hgb Conc 32.8 g/dL (32-36); Mean Corpuscular Hgb 27.9 pg (27.0-32.0); Mean Corpuscular Volume 85.2 fL (81-99); Mean Platelet Vol. 9.7 fl (6.2-12.0); Monocyte# 0.33 X10^3/uL; Monocyte% 8.2 % (0-10); NRBC Flagged by Analyzer 0 % (0-5); Neutrophil # 2.06 X10^3/uL (2.7-7.7); Neutrophil % 51.2 % (47-70); Platelet Count 178 K/mm3 (150-450); RBC Distribution Width CV 14.2 % (11.6-14.6); RBC Distribution Width SD 44.1 fl (35.1-43.9)
[2022-01-01] MEDS: Hyoscyamine Sulfate 0.125 MG Tablet SL (13:12)
[2022-01-01] MEDS: Ondansetron 4 MG/2 ML Vial IV (13:12)
[2022-01-01 13:31] LABS: ALB/GLOB Ratio 0.9 RATIO (0.9-2.4); AST(SGOT) 70 U/L (15-37); Alanine Aminotransfer ALT/SGPT 82 U/L (13-56); Albumin, Serum 3.6 g/dL (3.2-5.0); Alkaline Phosphatase 80 U/L (45-117); Anion Gap 7 (5-15); BUN 10 mg/dL (7-18); BUN/Creat Ratio 14.2 RATIO (10-20); Calcium,Total 8.7 mg/dL (8.5-10.1); Chloride 107 mmol/L (98-107); EST Glomerular Filtration Rate 90 mL/min (>60); Est Glom Filt Rate - Afr Amer 108 mL/min (>60); Estimated Creatinine Clearance 72.88 ml/min; Globulin 4.1 g/dL (2.2-4.2); Glucose 216 mg/dL (74-106); Lipase 128 U/L (73-393); Potassium 4.4 mmol/L (3.5-5.1); Protein, Total 7.7 g/dL (6.4-8.2); Sodium Level 138 mmol/L (136-145)
[2022-01-01 13:39] VITALS: BP 144/73; PULSE 83; RESP 16; O2SAT 95
[2022-01-01 13:43] LABS: Mucous, Urine 0 SEEN /hpf (<or=2+)
[2022-01-01 13:45] LABS: Color, Urine Yellow (Yellow); Glucose, Dipstick 100 mg/dl (Normal); Ketone-Dipstick Negative (Negative); Leukocyte Esterase-Dipstick 100 /ul (Negative); Nitrite-Dipstick Negative (Negative); Occult Blood-Urine 10 /ul (Negative); Protein-Dipstick 30 mg/dl (Negative); Urine Bilirubin Dipstick Negative (Negative); Urine Clarity Clear (Clear); Urine Urobilinogen Normal (Normal)
[2022-01-01 14:02] LABS: Bacteria 4+ /hpf (None Seen); Hyaline Cast 0-5 SEEN /lpf (0-5); Red Blood Cells-Urine 0-5 SEEN /hpf (0-5); Squamous Epithelial Cells - UA 5-10 SEEN /hpf (5-10); White Blood Cells 25-50 SEEN /hpf (0-5)
[2022-01-01 14:13] VITALS: BP 134/59; PULSE 81; RESP 18; O2SAT 97
== END 2022-01-01 14:21 | disposition home or self-care (01) ==
PROVIDERS: Emergency Provider Emergency Medicine; PCP Internal Medicine; Visit Provider Emergency Medicine
DX: R11.2 Nausea with vomiting, unspecified (principal); E11.9 Type 2 diabetes mellitus without complications; I10 Essential (primary) hypertension; R74.01 Elevation of levels of liver transaminase levels; R19.7 Diarrhea, unspecified; K76.0 Fatty (change of) liver, not elsewhere classified; E78.5 Hyperlipidemia, unspecified; Z90.49 Acquired absence of other specified parts of digestive tract; Z90.710 Acquired absence of both cervix and uterus
CPT/HCPCS: 74176; 80053; 81001; 83690; 85025; 96361; 96374; 99284; J7030; A4216; J2405

== ENCOUNTER 2022-04-14 18:56 | Observation (INO) | payer MEDICAID, SELFPAY ==
[2022-04-14] VITALS (9 sets, daily range): BP systolic 104–168; BP diastolic 58–99; PULSE 71–86; RESP 15–21; TEMP 36.4–36.7; O2SAT 94–98; BMI 38.5; BMI 35.2
--- NOTE | 2022-04-14 19:06 | ED.RN ---
PT ALLERGIC TO IODINE, VERIFIED WITH DR BRENNAN SO NO CTA ORDERED AT THIS TIME. IODINE ADDED TO ALLERGY
--- NOTE | 2022-04-14 19:06 | EKG12_ITS ---
Test Reason : STROKE Blood Pressure : / mmHG Vent. Rate : 088 BPM Atrial Rate : 088 BPM P-R Int : 122 ms QRS Dur : 084 ms QT Int : 390 ms P-R-T Axes : 113 -14 032 degrees QTc Int : 471 ms Normal sinus rhythm Low voltage QRS (Limb Leads) Poor R wave progression Confirmed by MITCHEL SANDY, CARLITOS ([id number]), legal editor RONNY HAMMER ([id number]) on 04/17/2022 8:55:25 AM Referred By: Confirmed By:CARLITOS GRULLON MD
--- NOTE | 2022-04-14 19:06 | CT_ITS ---
We are attempting to reach an attending provider to discuss findings. An addendum with communication details will be sent when the communication is complete. STUDY: CT HEAD STROKE PROTOCOL W/O CONTRAST INJECTION REASON FOR EXAM: Female, 62 years old. Neuro deficit, acute, stroke suspected RADIATION DOSAGE (If Supplied By Facility): CTDIvol = ( ) mGy, DLP = ( ) mGycm TECHNIQUE: Transaxial CT imaging of the brain was performed without administration of intravenous contrast material. Individualized dose optimization techniques were used for this CT. COMPARISON: 08/05/2018 FINDINGS: Normal soft tissue structures. Normal calvarium. Normal size ventricles and extra-axial spaces for the patient''s age. Normal white matter tracts of the cerebral hemispheres. Normal basal ganglia and thalami. Normal brainstem. Normal cerebellum. There is no intracranial hemorrhage. There are no findings of an acute ischemic infarction. Normal visualized paranasal sinuses. ASPECT score: CT/STROKE Brain/Head without Cont IMPRESSION: Normal unenhanced CT scan of the brain. Electronically Signed: Rob Singh MD at 19:24 EDT ,
--- NOTE | 2022-04-14 19:07 | ED.VIS.STROK ---
HPI History of Present Illness Chief Complaint: Neuro S/Sx Detail of Chief Complaint: Left-sided facial numbness Informant: patient Onset/Context/Timing Onset: Today Narrative Narrative: Patient presents with concern of numbness and burning sensation to the left side of her face. She states symptoms started 3 hours ago. She states in general she has not felt well the past couple of days but did not notice any numbness until today. No difficulty with speaking or swallowing. She denies any new weakness in her extremities. She reports some chronic right leg weakness because of sciatica. [facility] Medical History Arthritis Diabetes Hypertension Numbness and tingling Sciatica TIA (transient ischemic attack) Home Medications lisinopril 10 mg tablet 20 mg PO DAILY 04/28/14 [History Last Taken 11/22/18] metformin 500 mg tablet 1,000 mg PO BIDCM 04/28/14 [History Last Taken 11/22/18] acetaminophen 500 mg tablet (Tylenol Extra Strength) 1,000 mg PO QHS PRN Pain 03/17/20 [History Last Taken Unknown] atorvastatin 40 mg tablet 40 mg PO DAILY 03/17/20 [History Last Taken Unknown] meloxicam 15 mg tablet 15 mg PO QHS 04/14/22 [History Last Taken Unknown] Allergy/AdvReac Type Severity Reaction Status Date / Time Penicillins Allergy Unknown Unknown Verified 01/01/22 12:33 codeine Allergy Rash Verified 01/01/22 12:33 ibuprofen Allergy Rash Verified 01/01/22 12:33 Iodinated Contrast Media Allergy PT UNSURE Verified 04/14/22 19:20 OF REACTION shellfish derived Allergy Anaphylaxis Verified 01/01/22 12:33 Sulfa (Sulfonamide Allergy Anaphylaxis Verified 01/01/22 12:33 Antibiotics) strawberry [[place]] AdvReac Rash Verified 01/01/22 12:33 Family History Mother Diabetes Father Diabetes Sister Diabetes Surgical History History of partial hysterectomy Hx of cholecystectomy Social History Smoking Status: Never smoker second hand exposure: No alcohol intake: never substance use type: does not use caffeine: Yes what type of physical activity do you participate in: none frequency: does not exercise ROS ROS ED Constitutional Constitutional ED: Denies chills or fever(s) Eyes Eyes: Denies change in vision or discharge from eye(s) ENT ENT ED: Denies discharge from eye(s), rhinorrhea or sore throat Cardiovascular Cardiovascular: Denies chest pain or palpitations Respiratory/Chest Respiratory/Chest: Denies cough or dyspnea Gastrointestinal Gastrointestinal: Denies abdominal pain, diarrhea, nausea or vomiting Genitourinary Genitourinary ED: Denies difficulty urinating or dysuria Musculoskeletal Musculoskeletal: Reports extremity pain and myalgias; Denies back pain Integumentary Denies Abrasions or rash Neurologic Neurologic: Reports paresthesias; Denies headache(s) or weakness Psychiatric Psychiatric: Denies anxiety or depression Allergic/Immunologic Allergic/Immunologic ED: Denies lip swelling or urticaria EXAM Physical Exam Const Vital Signs: 04/14/22 18:57 04/14/22 19:04 04/14/22 19:14 Temperature 98 F 98 F Temperature Source Temporal Temporal Pulse Rate 85 86 Respiratory Rate 15 20 H Blood Pressure 168/88 H 168/88 H Blood Pressure Mean 114 114 Pulse Ox 98 95 Oxygen Delivery Method Room Air Room Air Room Air 04/14/22 19:23 Temperature Temperature Source Pulse Rate 84 Respiratory Rate 21 H Blood Pressure 132/99 H Blood Pressure Mean 110 Pulse Ox 97 Oxygen Delivery Method Room Air Positive well nourished and well developed General Appearance ED: well developed HEENT Reports normocephalic and head/scalp atraumatic Eyes PERRL and EOMs intact bilaterally Neck supple Chest Wall inspection of chest normal and palpation of chest normal Resp normal respiratory effort and clear to auscultation bilaterally Cardio regular rate and regular rhythm GI normal to inspection, nondistended, normoactive bowel sounds Palpation: soft Extremity normal to inspection Neuro oriented x3 Neuro Narrative: See NIH stroke score. Sensorium / Orientation: alert Psych mental status grossly normal Skin no rashes or lesions noted MDM MDM MDM Narrative Medical decision making narrative: Stroke alert was called at the time of my evaluation. Patient reports having allergic reaction to the contrast given during a heart cath in the past. Therefore CT noncontrast only was obtained. Lab work, chest x-ray, EKG obtained. Lab Data Attestation: I reviewed the patient's lab results. Labs: Laboratory Results - last 24 hr 04/14/22 04/14/22 04/14/22 19:00 19:00 19:00 WBC 7.8 RBC 5.03 Hgb 14.7 Hct 42.4 MCV 84.3 MCH 29.2 MCHC 34.7 RDW Std Deviation 43.0 RDW Coeff of Nael 14.1 Plt Count 265 MPV 9.5 Immature Gran % (Auto) 0.300 Neut % (Auto) 41.3 L Lymph % (Auto) 47.5 H [place] % (Auto) 7.3 Eos % (Auto) 2.8 Baso % (Auto) 0.8 Absolute Neuts (auto) 3.2 Absolute Lymphs (auto) 3.71 Nucleated RBC % 0 PT 11.4 L INR 0.9 APTT 29.4 Sodium 137 Potassium 3.8 Chloride 103 Carbon Dioxide 26.0 Anion Gap 8 BUN 12 Creatinine 0.72 Estim Creat Clear Calc 64.07 Est GFR (MDRD) Af Amer 105 Est GFR (MDRD) Non-Af 87 BUN/Creatinine Ratio 16.6 Glucose 281 H Calcium 9.0 Troponin I High Sens 23 Radiography Diagnostic Testing: Clinical Impression(s) from Imaging Studies Brain CT 04/14/22 19:06 IMPRESSION: Normal unenhanced CT scan of the brain. Electronically Signed: Rob Singh MD at 19:24 EDT , ADDENDUM: 04/14/221931 IMPRESSION: Normal unenhanced CT scan of the brain. N.B. : The above Results were Read Back by Rob Singh MD to Dr. Laisha MD, and understanding confirmed on 04/14/2022 19:25:05 (ET). Electronically Signed: Rob Singh MD at 19:24 EDT , Chest X-Ray 04/14/22 19:24 IMPRESSION: Normal x-ray examination of the chest. Electronically Signed: Rob Singh MD at 19:41 EDT , EKG Initial EKG: Attestation: I personally reviewed and interpreted this EKG as follows: Interpretation: Sinus Rhythm (Sinus 88 with no acute ischemia.) Treatment and Re-Evaluation Narrative: On repeat evaluation patient resting comfortably. She states she is able to get up to the restroom and felt okay. She feels like the numbness on the left side of her face seems to be coming and going more now. Neurology at [facility] did be admitted evaluate the patient. They did not feel that she needed tPA I did recommend admission for TIA work-up. Blood work at this time is unremarkable. EKG reveals no ischemia. Chest x-ray per my interpretation reveals no focal infiltrate. I will speak with hospitalist regarding admission. Stroke Documentation Questions Stroke Team Activated: Yes Discharge Plan Triage Chief Complaint: Neuro S/Sx ED Provider: Angela Interiano Dx/Rx/DC Orders Clinical Impression: Paresthesias, Stroke-like symptom Prescriptions: No Action atorvastatin 40 mg tablet 40 mg PO DAILY acetaminophen [Tylenol Extra Strength] 500 mg tablet 1,000 mg PO QHS PRN (Reason: Pain) metformin 500 MG tablet 1,000 mg PO BIDCM lisinopril 10 MG tablet 20 mg PO DAILY meloxicam 15 mg tablet 15 mg PO QHS Primary Care Provider: Dhaval Huerta Referrals: Dhaval Huerta MD [Primary Care Provider] - Disposition Disposition: Acute Care Hospital [facility] NIHSS NIHSS 1a. Level of Consciousness: Alert; keenly responsive 1b. LOC Questions: Answers BOTH questions correctly. 1c. LOC Commands: Performs both tasks correctly. 2. Best Gaze: Normal 3. Visual: No visual loss 4. Facial Palsy: Normal symmetrical movements 5a. Left Arm: No drift; arm holds 90 (or 45) degrees for full 10 seconds 5b. Right Arm: No drift; arm holds 90 (or 45) degrees for full 10 seconds 6a. Left Leg: No drift; leg holds 30-degree position for full 5 seconds 6b. Right Leg: No drift; leg holds 30-degree position for full 5 seconds 7. Limb Ataxia: Absent 8. Sensory: [id number] sensory loss; 9. Best Language: No aphasia; normal 10. Dysarthria: Normal 11. Extinction and Inattention: No abnormality Total: 1 Stroke Questions Stroke Team Activated: Yes
[2022-04-14 19:15] LABS: Absolute Lymphocyte Count 3.71 X10^3/uL (0.83-4.51); Absolute Neutrophil Count 3.2 X10^3/uL (2.0-7.7); Basophil# 0.06 X10^3/uL; Basophil% 0.8 % (0-1); Eosinophil# 0.22 X10^3/uL; Eosinophils% 2.8 % (0-5); Hematocrit 42.4 % (37-47); Hemoglobin 14.7 g/dL (12.0-15.0); Lymphocyte # 3.71 X10^3/ul (0.83-4.51); Lymphocyte % 47.5 % (19-41); Mean Corp Hgb Conc 34.7 g/dL (32-36); Mean Corpuscular Hgb 29.2 pg (27.0-32.0); Mean Corpuscular Volume 84.3 fL (81-99); Mean Platelet Vol. 9.5 fl (6.2-12.0); Monocyte# 0.57 X10^3/uL; Monocyte% 7.3 % (0-10); NRBC Flagged by Analyzer 0 % (0-5); Neutrophil # 3.23 X10^3/uL (2.7-7.7); Neutrophil % 41.3 % (47-70); Platelet Count 265 K/mm3 (150-450); RBC Distribution Width CV 14.1 % (11.6-14.6); Red Blood Count 5.03 M/mm3 (4.2-5.4); White Blood Count 7.8 K/mm3 (4.4-11.0)
--- NOTE | 2022-04-14 19:18 | EKG12_ITS ---
Test Reason : STROKE Blood Pressure : / mmHG Vent. Rate : 088 BPM Atrial Rate : 088 BPM P-R Int : 122 ms QRS Dur : 084 ms QT Int : 390 ms P-R-T Axes : 113 -14 032 degrees QTc Int : 471 ms Normal sinus rhythm Inferior NV, age undetermined, cannot be excluded Confirmed by MITCHEL SANDY, CARLITOS ([id number]), communications editor RONNY HAMMER ([id number]) on 04/18/2022 9:56:00 AM Referred By: Confirmed By:CARLITOS GRULLON MD
[2022-04-14 19:24] LABS: International Normalized Ratio 0.9; Partial Thromboplast Time 29.4 Seconds (24.1-36.2); Prothrombin Time (Protime)PT. 11.4 SECONDS (11.7-14.9)
--- NOTE | 2022-04-14 19:24 | RAD_ITS ---
STUDY: X-RAY CHEST REASON FOR EXAM: Female, 62 years old. Neuro deficit, acute, stroke suspected TECHNIQUE: Single AP portable view of the chest. COMPARISON: 11/22/2018 FINDINGS: The lungs are clear and expanded. There is no demonstrated pleural abnormality. Normal size heart. Normal mediastinum and ziggy. Normal visualized pulmonary arteries. Normal visualized aortic arch and descending thoracic aorta. Normal visualized thoracic spine. Normal visualized ribs, clavicles, and shoulders. There is no demonstrated abnormality of the visualized soft tissue structures of the upper abdomen. RAD/Chest 1 View IMPRESSION: Normal x-ray examination of the chest. Electronically Signed: Rob Singh MD at 19:41 EDT ,
[2022-04-14 19:46] LABS: Anion Gap 8 (5-15); BUN 12 mg/dL (7-18); BUN/Creat Ratio 16.6 RATIO (10-20); Chloride 103 mmol/L (98-107); Creatinine, Serum 0.72 mg/dL (0.55-1.02); EST Glomerular Filtration Rate 87 mL/min (>60); Est Glom Filt Rate - Afr Amer 105 mL/min (>60); Estimated Creatinine Clearance 64.07 ml/min; Glucose 281 mg/dL (74-106); Potassium 3.8 mmol/L (3.5-5.1); Sodium Level 137 mmol/L (136-145); Troponin-I HS 23 pg/mL (3.0-54.0)
--- NOTE | 2022-04-14 20:11 | ED.RN ---
NIH and vitals assessment cancelled [address] order [address] Interiano.
--- NOTE | 2022-04-14 20:34 | PCM.HP.STD ---
HPI - General General Date of Admission: 04/14/22 Date of Service: 04/14/22 Chief Complaint: Numbness and tingling HPI Narrative MARTI LOPEZ, is a 62 F with a significant history of previous TIA; sciatica with left leg weakness; diabetes and hypertension who presents to the emergency department with numbness and tingling of her left face and her left arm. Her symptoms started about 3 hours before presentation. Her symptoms is episodic. [facility] Medical History Arthritis Diabetes Diverticulitis Hypertension Numbness and tingling Sciatica TIA (transient ischemic attack) Home Medications lisinopril 10 mg tablet 20 mg PO DAILY 04/28/14 [History Last Taken 04/14/22 08:00] metformin 500 mg tablet 500 mg PO BIDCM 04/28/14 [History Last Taken 04/14/22] acetaminophen 500 mg tablet (Tylenol Extra Strength) 1,000 mg PO QHS PRN Pain 03/17/20 [History Last Taken 04/13/22] atorvastatin 40 mg tablet 40 mg PO DAILY 03/17/20 [History Last Taken 04/14/22] meloxicam 15 mg tablet 15 mg PO QHS 04/14/22 [History Last Taken 04/13/22] pioglitazone 15 mg tablet 15 mg PO DAILY 04/14/22 [History Last Taken 04/14/22] Allergy/AdvReac Type Severity Reaction Status Date / Time Penicillins Allergy Unknown Unknown Verified 01/01/22 12:33 codeine Allergy Rash Verified 01/01/22 12:33 ibuprofen Allergy Rash Verified 01/01/22 12:33 Iodinated Contrast Media Allergy PT UNSURE Verified 04/14/22 19:20 OF REACTION shellfish derived Allergy Anaphylaxis Verified 01/01/22 12:33 Sulfa (Sulfonamide Allergy Anaphylaxis Verified 01/01/22 12:33 Antibiotics) strawberry [[place]] AdvReac Rash Verified 01/01/22 12:33 Family History Mother Diabetes Father Diabetes Sister Diabetes Surgical History History of partial hysterectomy Hx of cholecystectomy Social History Smoking Status: Never smoker second hand exposure: No alcohol intake: never substance use type: does not use caffeine: Yes what type of physical activity do you participate in: none frequency: does not exercise ROS ROS Narrative Pertinent positives and pertinent negatives as noted in HPI. All other systems were reviewed and are negative Vital Signs Vital Signs Vital Signs: 04/14/22 18:57 04/14/22 19:04 04/14/22 19:14 Temperature 98 F 98 F Temperature Source Temporal Temporal Pulse Rate 85 86 Respiratory Rate 15 20 H Blood Pressure 168/88 H 168/88 H Blood Pressure Mean 114 114 Pulse Ox 98 95 Oxygen Delivery Method Room Air Room Air Room Air 04/14/22 19:23 04/14/22 19:36 04/14/22 20:01 Temperature Temperature Source Pulse Rate 84 72 72 Respiratory Rate 21 H 19 H 19 H Blood Pressure 132/99 H 122/58 H 122/58 H Blood Pressure Mean 110 79 79 Pulse Ox 97 95 95 Oxygen Delivery Method Room Air Room Air Room Air 04/14/22 20:06 04/14/22 20:31 Temperature 97.8 F 97.6 F L Temperature Source Temporal Temporal Pulse Rate 75 74 Respiratory Rate 15 17 Blood Pressure 142/67 H 141/59 H Blood Pressure Mean 92 86 Pulse Ox 96 94 Oxygen Delivery Method Room Air Room Air Weight Weight: 95.5 kg Body Mass Index (BMI) 38.5 Physical Exam Narrative Physical exam: General: Well-nourished, well-developed. Head: Normocephalic, atraumatic, no tenderness Eyes: Vision is grossly intact. EOMI ENT, no trauma, moist mucous membranes, no rhinorrhea Neck: Nontender, full range of motion CVS: Regular rate and rhythm. S1-S2 present. No murmur, gallop or rub. Respiratory : clear to auscultation bilaterally, chest wall nontender, no wheezing Abdomen: Soft, nontender, nondistended, normal bowel sounds, no masses : Deferred Back: Nontender, no CVA tenderness, no midline spinal tenderness, deformities, step-offs Extremities: Nontender full range of motion, no trauma Skin: Normal color, no trauma, abrasions Neuro: Alert, oriented, cranial nerves II through XII grossly intact. No dysmetria with [id number] test. No sensation changes. Extremity strength 5 out of 5 except right lower extremity strength is 4 out of 5 (chronic) Psychiatry: Normal mood. Normal affect. Not depressed. Not anxious. Results Lab / Micro Data Attestation: I reviewed the patient's lab results. Result Diagrams: 04/14/22 19:00 04/14/22 19:00 Labs: Laboratory Results - last 24 hr 04/14/22 19:00: WBC 7.8, RBC 5.03, Hgb 14.7, Hct 42.4, MCV 84.3, MCH 29.2, MCHC 34.7, RDW Std Deviation 43.0, RDW Coeff of Nael 14.1, Plt Count 265, MPV 9.5, Immature Gran % (Auto) 0.300, Neut % (Auto) 41.3 L, Lymph % (Auto) 47.5 H, [place] % (Auto) 7.3, Eos % (Auto) 2.8, Baso % (Auto) 0.8, Absolute Neuts (auto) 3.2, Absolute Lymphs (auto) 3.71, Nucleated RBC % 0 04/14/22 19:00: PT 11.4 L, INR 0.9, APTT 29.4 04/14/22 19:00: Sodium 137, Potassium 3.8, Chloride 103, Carbon Dioxide 26.0, Anion Gap 8, BUN 12, Creatinine 0.72, Estim Creat Clear Calc 64.07, Est GFR (MDRD) Af Amer 105, Est GFR (MDRD) Non-Af 87, BUN/Creatinine Ratio 16.6, Glucose 281 H, Calcium 9.0, Troponin I High Sens [address] 04/14/22 19:06 IMPRESSION: Normal unenhanced CT scan of the brain. Electronically Signed: Rob Singh MD at 19:24 EDT , ADDENDUM: 04/14/221931 IMPRESSION: Normal unenhanced CT scan of the brain. N.B. : The above Results were Read Back by Rob Singh MD to Dr. Laisha MD, and understanding confirmed on 04/14/2022 19:25:05 (ET). Electronically Signed: Rob Singh MD at 19:24 EDT , Chest X-Ray 04/14/22 19:24 IMPRESSION: Normal x-ray examination of the chest. Electronically Signed: Rob Singh MD at 19:41 EDT , Assessment & Plan Assessment/Plan (1) Paresthesias: (2) Stroke-like symptom: (3) Type 2 diabetes mellitus: (4) Benign hypertension: PLAN: Plan Paresthesia/Stroke-like symptoms Serial NINDS NIH Scale ordered Not a candidate of tPA secondary to low NIH Impression of head CT by radiology: Normal unenhanced CT scan of the brain. Allergic to dye so CTA head and neck with contrast could not be done. Upon my personal head CT image review: I agree with radiologist interpretation Lipid profile and A1c ordered. Physical therapy, and occupational therapy ordered. N.p.o. until bedside swallow eval. Daily aspirin. High intensity statin continued Permissive hypertension. Control blood pressure with labetalol for systolic blood pressure of more than 220 or diastolic blood pressure of more than 120. MRI/MRA of head; brain; and neck. Last echo on file was on 04/13/12: EF of 65%; Mildly enlarged left atrium. Echocardiogram ordered. Diabetes mellitus Patient with hyperglycemia on presentation Pioglitazone continued. Metformin held Monitor Accu-Cheks Correction scale insulin ordered. Hypertension Blood pressure is stable Home blood pressure medication held for permissive HTN. Trend blood pressure. DVT Prophylaxis SCD held Charges/Coding Visit Charges OBSV E&M: 60099 Initial observation care L3
--- NOTE | 2022-04-14 21:16 | ECHOD_ITS ---
Reason For Study: TIA/CVA Procedure This was a 2D Doppler, Color Flow transthoracic echocardiogram. The exam was of adequate technical quality. Exam performed portable in patient room. Left Ventricle Normal LV size. Mild concentric left ventricular hypertrophy. Left ventricular systolic function is normal. The estimated ejection fraction is 60 %. No evidence for diastolic dysfunction. No regional wall motion abnormalities noted. Right Ventricle Normal RV size. Normal systolic function. Atria The left atrium is mildly enlarged. Normal right atrium. No doppler evidence for ASD. Mitral Valve There is mild to moderate mitral annular calcification. Extension of the mitral annular calcification onto the base of the posterior mitral valve leaflet. The mitral valve chordae are thickened and/or calcified. Trivial mitral valve insufficiency. Tricuspid Valve Normal tricuspid valve. Trivial tricuspid valve insufficiency. Unable to estimate RV systolic pressure due to insufficient tricuspid regurgitant envelope. Aortic Valve Trisinus/trileaflet aortic valve. Mild focal aortic valve calcification. Pulmonic Valve The pulmonic valve is not well visualized. Great Vessels Normal sized aortic root. Pericardium/Pleural No pericardial effusion. MMode/2D Measurements & Calculations LVIDd: 4.1 cm IVSd: 1.6 cm Ao root diam: 3.3 cm LVIDs: 2.6 cm LVPWd: 1.3 cm RVDd: 3.7 cm FS: 36.0 % LAV(MOD-bp): 50.3 ml LA A4 area: 20.3 cm2 LA dimension(2D): 3.5 cm LAV(MOD-bp) Indexed: 25.8 ml/m2 LAV(MOD-sp2): 41.2 ml LAV(MOD-sp4): 59.7 ml RA A4 area: 17.1 cm2 Time Measurements MV dec time: 0.23 sec Doppler Measurements & Calculations MV E max berto: 74.9 cm/sec Lat Peak E' Berto: 7.4 cm/sec Med Peak E' Berto: 6.7 cm/sec MV A max berto: 113.1 cm/sec E/E' lat: 10.1 E/E' med: 11.2 MV E/A: 0.66 MV V2 max: 123.4 cm/sec MV P1/2t max berto: 85.7 cm/sec Ao V2 max: 122.0 cm/sec MV max P.1 mmHg MV P1/2t: 84.1 msec Ao max P.0 mmHg MV V2 mean: 56.2 cm/sec MV dec slope: 298.3 cm/sec2 Ao V2 mean: 85.6 cm/sec MV mean P.6 mmHg Ao mean P.3 mmHg MV V2 VTI: 42.6 cm MVA(P1/2t): 2.6 cm2 Ao V2 VTI: 25.7 cm LV V1 max: 107.0 cm/sec PA V2 max: 100.8 cm/sec LV V1 max P.6 mmHg PA V2 mean: 69.2 cm/sec LV V1 mean P.4 mmHg LV V1 mean: 72.4 cm/sec LV V1 VTI: 25.7 cm ECHO/Echo Complete Interpretation Summary Left ventricular systolic function is normal. The estimated ejection fraction is 60 %. Mild concentric left ventricular hypertrophy. The left atrium is mildly enlarged. There is mild to moderate mitral annular calcification. Extension of the mitral annular calcification onto the base of the posterior mi tral valve leaflet. The mitral valve chordae are thickened and/or calcified. Trivial mitral valve insufficiency. Trivial tricuspid valve insufficiency. Mild focal aortic valve calcification. Unable to estimate RV systolic pressure due to insufficient tricuspid regurgita nt envelope. No evidence for diastolic dysfunction. Mild concentric left ventricular hypertrophy. Previous transthoracic echocardiogram from 04-14-2012: Negative agitated saline contrast study for right to left interatrial shunt. Ordering Physician: Wolfgang Brambila Referring Physician: Dhaval Huerta M.D. Performed By: José Antonio Mcdaniels RCS
[2022-04-14] MEDS: Meloxicam 15 MG Tablet PO (22:45)
[2022-04-14] MEDS: Atorvastatin Calcium 40 MG Tablet PO (22:45)
[2022-04-15] VITALS (11 sets, daily range): BP systolic 109–141; BP diastolic 63–81; PULSE 65–84; RESP 16–20; TEMP 36.3–36.8; O2SAT 92–96; BMI 35.2
[2022-04-15 00:21] LABS: Bedside Glucose 192 mg/dL (74-106)
[2022-04-15] MEDS: Acetaminophen 500 MG Tablet 1000 MG PO (02:20)
[2022-04-15] MEDS: Insulin Lispro 100 UNIT/ML INSULN.PEN SC (06:31)
[2022-04-15 06:50] LABS: Absolute Lymphocyte Count 3.06 X10^3/uL (0.83-4.51); Absolute Neutrophil Count 2.4 X10^3/uL (2.0-7.7); Basophil# 0.04 X10^3/uL; Basophil% 0.6 % (0-1); Eosinophil# 0.26 X10^3/uL; Eosinophils% 4.1 % (0-5); Hematocrit 39.7 % (37-47); Hemoglobin 13.1 g/dL (12.0-15.0); Lymphocyte # 3.06 X10^3/ul (0.83-4.51); Lymphocyte % 48.3 % (19-41); Mean Corpuscular Hgb 27.8 pg (27.0-32.0); Mean Corpuscular Volume 84.3 fL (81-99); Monocyte# 0.57 X10^3/uL; NRBC Flagged by Analyzer 0 % (0-5); Neutrophil # 2.39 X10^3/uL (2.7-7.7); Neutrophil % 37.7 % (47-70); Platelet Count 218 K/mm3 (150-450); RBC Distribution Width CV 13.9 % (11.6-14.6); Red Blood Count 4.71 M/mm3 (4.2-5.4); White Blood Count 6.3 K/mm3 (4.4-11.0)
[2022-04-15 06:56] LABS: Bedside Glucose 167 mg/dL (74-106)
--- NOTE | 2022-04-15 07:00 | MRI_ITS ---
HISTORY: CVA, numbness left face, burning. TECHNIQUE: Multiplanar and multisequence MR images of the brain were obtained without contrast. 280 images. COMPARISON: CT prior day. FINDINGS: BRAIN PARENCHYMA: Minimal periventricular white matter changes. No abnormal focus of restricted diffusion. No acute intracranial hemorrhage identified. CSF SPACES: Cerebral ventricles, cortical sulci, and other extra-axial CSF spaces within normal limits in size for patient''s age. No significant midline shift or other mass effect.No extra-axial fluid collection. VASCULAR SYSTEM: Major intracranial flow voids are maintained. PARANASAL SINUSES AND MASTOID AIR CELLS: No significant air fluid levels. ORBITS: Symmetric contents. MRI/Brain without Contrast IMPRESSION: No evidence for acute infarct. Electronically Signed: Leonila Wynn MD at 13:23 EDT ,
--- NOTE | 2022-04-15 07:01 | MRI_ITS ---
HISTORY: cva. TECHNIQUE: Routine [place]/brain 3D time of flight MR angiogram protocol was performed. 3D reconstructions were reviewed. IV Contrast Dosage and Agent: None. COMPARISON: None FINDINGS: ICAs: No significant stenosis at the intracranial/visualized segments. ACAs: No significant stenosis at the visualized segments. MCAs: No significant stenosis at the visualized segments. child protective services social worker: No significant stenosis at the visualized segments. Right origin. BASILAR ARTERY: No significant stenosis. VERTEBRAL ARTERIES: No significant stenosis at the intradural/visualized segments. No evidence of intracranial aneurysm or vascular malformation. MRI/MRA Head ONLY without Contrast IMPRESSION: No evidence for significant stenosis or large vessel occlusion in the [place] region. Electronically Signed: Leonila Wynn MD at 13:33 EDT ,
--- NOTE | 2022-04-15 07:01 | MRI_ITS ---
HISTORY: cva. TECHNIQUE: Routine [id number] carotid MR angiogram protocol was performed without contrast. 3D reconstructions were reviewed. NASCET criteria using the distal ICAs for comparison were used for evaluation of stenoses. IV Contrast Dosage and Agent: None. 547 images. COMPARISON: None. FINDINGS: RIGHT CCA: No occlusion or significant stenosis. RIGHT ICA: No occlusion, significant stenosis, or dissection. LEFT CCA: No occlusion or significant stenosis. LEFT ICA: No occlusion, significant stenosis, or dissection. RIGHT VERTEBRAL ARTERY: Hypoplastic and patent. LEFT VERTEBRAL ARTERY: Dominant. No occlusion, significant stenosis, or dissection. MRI/MRA Neck without Contrast IMPRESSION: No evidence for significant stenosis or occlusion in the vertebral or carotid arteries of the neck. Electronically Signed: Leonila Wynn MD at 13:35 EDT ,
[2022-04-15 07:27] LABS: Anion Gap 8 (5-15); BUN 11 mg/dL (7-18); BUN/Creat Ratio 15.1 RATIO (10-20); Chloride 105 mmol/L (98-107); Cholesterol 258 mg/dL (200); Creatinine, Serum 0.73 mg/dL (0.55-1.02); EST Glomerular Filtration Rate 86 mL/min (>60); Est Glom Filt Rate - Afr Amer 104 mL/min (>60); Glucose 181 mg/dL (74-106); High Density Lipoprotein 35 mg/dL; Potassium 4.2 mmol/L (3.5-5.1); Sodium Level 137 mmol/L (136-145); Triglycerides 681 mg/dL
[2022-04-15] MEDS: Aspirin 81 MG TAB.CHEW PO (08:48)
[2022-04-15] MEDS: Pioglitazone Hydrochloride 15 MG Tablet PO (08:48)
[2022-04-15] MEDS: LORazepam 1 MG Tablet PO (11:11)
[2022-04-15 11:41] LABS: Bedside Glucose 156 mg/dL (74-106)
--- NOTE | 2022-04-15 11:49 | CASEMGMT ---
SW completed a PHQ9 with patient as she may have had a TIA or Stroke. Patient scored a 2 which indicates minimal depression. Patient denies need for any counseling resources. Suze WILLS
--- NOTE | 2022-04-15 13:47 | DCINST_ITS ---
Discharge Instructions Diet Discharge Diet: Low fat / Low cholesterol and 1800 Calorie Control Diet Activity Discharge Activity: Return to Normal Activity Dressing / Incision Call your doctor if you observe: Numbness or Tingling and Fainting spells Follow Up Care Test Results: Test results from this visit will be discussed in further detail at your follow- up appointment, if applicable. Discharge Plan Admission Admit Date/Time: 04/14/22 20:23 Primary Reason for Your Visit: Facial Numbness Attending Provider: Monica Casarez Primary Care Provider: Dhaval Huerta Consulting Providers: Wolfgang Brambila Discharge Orders/Prescriptions Prescriptions: New atorvastatin 40 mg Tablet 80 mg PO 2200 30 Days Qty: 60 0RF aspirin 81 mg Tablet,Chewable 81 mg PO DAILY@0800 30 Days Qty: 30 0RF Continued acetaminophen [Tylenol Extra Strength] 500 mg tablet 1,000 mg PO QHS PRN (Reason: Pain) lisinopril 10 MG tablet 20 mg PO DAILY meloxicam 15 mg tablet 15 mg PO QHS pioglitazone 15 mg tablet 15 mg PO DAILY Held metformin 500 MG tablet 500 mg PO BIDCM Hold Instructions: Resume on 04/17/22. Discontinued atorvastatin 40 mg tablet 40 mg PO DAILY Other Ambulatory Orders: 30 Day Event [employer] (Urgent) Location: None Selected Ordered By: Ness Rivera Referrals / Follow Up: Lionel Connolly MD [Non-Staff] - Within 2 Weeks Diego Torres MD [Med Staff - Courtesy Staff] - Within 2 Weeks Dhaval Huerta MD [Primary Care Provider] - Disposition Disposition (needs filled in before D/C Order can be placed): Home, Self Care
--- NOTE | 2022-04-15 13:59 | DS.PCM_ITS ---
Documented by User: BERONICA Cornelius 04/15/22 14:02 Providers Date of Admission: 04/14/22 Date of Discharge: 04/15/22 Primary Care Physician: Dr. Dhaval Huerta MD Reason For Visit: STROKE LIKE SYMMTOMS Diagnosis Discharge Diagnosis (1) Paresthesias: Status: Acute Code(s): R20.2 - Paresthesia of skin (2) Stroke-like symptom: Status: Acute Code(s): R29.90 - Unspecified symptoms and signs involving the nervous system (3) Type 2 diabetes mellitus: Status: Chronic Code(s): E11.9 - Type 2 diabetes mellitus without complications (4) Benign hypertension: Status: Chronic Code(s): I10 - Essential (primary) hypertension Medications at Discharge Home Medications lisinopril 10 mg tablet 20 mg PO DAILY 04/28/14 metformin 500 mg tablet 500 mg PO BIDCM 04/28/14 acetaminophen 500 mg tablet (Tylenol Extra Strength) 1,000 mg PO QHS PRN Pain 03/17/20 meloxicam 15 mg tablet 15 mg PO QHS 04/14/22 pioglitazone 15 mg tablet 15 mg PO DAILY 04/14/22 aspirin 81 mg chewable tablet 81 mg PO DAILY@0800 30 days #30 tabs 04/15/22 atorvastatin 40 mg tablet 80 mg PO 2200 30 days #60 tabs 04/15/22 Hospital Course Procedures 2-D Echocardiogram Summary of Care Provided Minutes Spent on Discharge: 35 Hospital Course: Patient is a 62-year-old female who originally presented to the ER with facial numbness. Patient reported history of TIA, diabetes and hypertension. MRI brain and MRA head and neck negative. Echocardiogram demonstrates EF 60%. Discussed findings with patient who verbalized understanding. Informed patient that her hemoglobin A1c is currently 9 and she has high triglycerides as well. Patient states that this has not been a problem in the past. Referral made for outpatient follow-up with endocrinology as well as neurology. Atorvastatin incr eased from 40 mg to 80 mg daily and aspirin 81 mg added daily. Physical Exam Const alert, oriented x3 and no apparent distress General Appearance: cooperative HEENT normocephalic and head/scalp atraumatic Eyes conjunctivae normal and no scleral icterus Neck no lymphadenopathy and supple General: trachea midline Resp normal respiratory effort, normal air movement and clear to auscultation bilaterally Cardio regular rate, regular rhythm, S1 normal heart sound, S2 normal heart sound and peripheral pulses 2+ throughout GI normal to inspection, nondistended, normoactive bowel sounds, soft to palpation and non-tender Extremity normal capillary refill, no clubbing, cyanosis or edema and no calf tenderness Skin skin turgor normal Neuro no focal motor deficits and no sensory deficits noted Speech: speech normal Gait (Neuro): normal gait Psych affect normal Weight / BMI Weight Weight: 205 lb 0.478 oz Body Mass Index (BMI) 35.2 ABG / Lab / Microbiology Data Result Diagrams: 04/15/22 06:10 04/15/22 06:10 Laboratory: Laboratory Results - last 24 hr 04/14/22 19:00: WBC 7.8, RBC 5.03, Hgb 14.7, Hct 42.4, MCV 84.3, MCH 29.2, MCHC 34.7, RDW Std Deviation 43.0, RDW Coeff of Nael 14.1, Plt Count 265, MPV 9.5, I mmature Gran % (Auto) 0.300, Neut % (Auto) 41.3 L, Lymph % (Auto) 47.5 H, [place] % (Auto) 7.3, Eos % (Auto) 2.8, Baso % (Auto) 0.8, Absolute Neuts (auto) 3.2, Absolute Lymphs (auto) 3.71, Nucleated RBC % 0 04/14/22 19:00: PT 11.4 L, INR 0.9, APTT 29.4 04/14/22 19:00: Sodium 137, Potassium 3.8, Chloride 103, Carbon Dioxide 26.0, Anion Gap 8, BUN 12, Creatinine 0.72, Estim Creat Clear Calc 64.07, Est GFR (MDRD) Af Amer 105, Est GFR (MDRD) Non-Af 87, BUN/Creatinine Ratio 16.6, Glucose 281 H, Calcium 9.0, Troponin I High Sens 23 04/14/22 22:44: POC Glucose 192 H 04/15/22 06:10: WBC 6.3, RBC 4.71, Hgb 13.1, Hct 39.7, MCV 84.3, MCH 27.8, MCHC 33.0, RDW Std Deviation 43.0, RDW Coeff of Nael 13.9, Plt Count 218, MPV 10.0, Immature Gran % (Auto) 0.300, Neut % (Auto) 37.7 L, Lymph % (Auto) 48.3 H, [place] % (Auto) 9.0, Eos % (Auto) 4.1, Baso % (Auto) 0.6, Absolute Neuts (auto) 2.4, Absolute Lymphs (auto) 3.06, Nucleated RBC % 0 04/15/22 06:10: Sodium 137, Potassium 4.2, Chloride 105, Carbon Dioxide 24.0, Anion Gap 8, BUN 11, Creatinine 0.73, Estim Creat Clear Calc 69.00, Est GFR (MDRD) Af Amer 104, Est GFR (MDRD) Non-Af 86, BUN/Creatinine Ratio 15.1, Glucose 181 H, Calcium 9.0, Triglycerides 681 H, Cholesterol 258 H, LDL Cholesterol TNP, VLDL Cholesterol TNP, HDL Cholesterol 35 L 04/15/22 06:10: Hemoglobin A1c 9.0 H 04/15/22 06:29: POC Glucose 167 H 04/15/22 11:13: POC Glucose 156 H Radiography Diagnostic Testing: Radiology Impression Brain CT 04/14/22 19:06 IMPRESSION: Normal unenhanced CT scan of the brain. Electronically Signed: Rob Singh MD at 19:24 EDT Reading Location ID and State: [id number] / [employer] Tel , Service support , ADDENDUM: 04/14/221931 IMPRESSION: Normal unenhanced CT scan of the brain. N.B. : The above Results were Read Back by Rob Singh MD to Dr. Laisha MD, and understanding confirmed on 04/14/2022 19:25:05 (ET). Electronically Signed: Rob Singh MD at 19:24 EDT , Chest X-Ray 04/14/22 19:24 IMPRESSION: Normal x-ray examination of the chest. Electronically Signed: Rob Singh MD at 19:41 EDT , Echocardiogram 04/14/22 21:16 Interpretation Summary Left ventricular systolic function is normal. The estimated ejection fraction is 60 %. Mild concentric left ventricular hypertrophy. The left atrium is mildly enlarged. There is mild to moderate mitral annular calcification. Extension of the mitral annular calcification onto the base of the posterior mitral valve leaflet. The mitral valve chordae are thickened and/or calcified. Trivial mitral valve insufficiency. Trivial tricuspid valve insufficiency. Mild focal aortic valve calcification. Unable to estimate RV systolic pressure due to insufficient tricuspid regurgitant envelope. No evidence for diastolic dysfunction. Mild concentric left ventricular hypertrophy. Previous transthoracic echocardiogram from 04-14-2012: Negative agitated saline contrast study for right to left interatrial shunt. Ordering Physician: Wolfgang Brambila Referring Physician: Dhaval Huerta M.D. Performed By: José Antonio Mcdaniels RCS Brain MRI 04/15/22 07:00 IMPRESSION: No evidence for acute infarct. Electronically Signed: Leonila Wynn MD at 13:23 EDT , Head MRA 04/15/22 07:01 IMPRESSION: No evidence for significant stenosis or large vessel occlusion in the [place] region. Electronically Signed: Leonila Wynn MD at 13:33 EDT , Neck MRA 04/15/22 07:01 IMPRESSION: No evidence for significant stenosis or occlusion in the vertebral or carotid arteries of the neck. Electronically Signed: Leonila Wynn MD at 13:35 EDT Reading Location ID and State: [facility] / [place] Tel , Service support , D/C Instructions Discharge Diet: Low fat / Low cholesterol and 1800 Calorie Control Diet Call your doctor if you observe: Numbness or Tingling and Fainting spells Meaningful Use Info Meaningful Use Diagnoses (Choose all that apply): None applicable Discharge Plan Admission Admit Date/Time: 04/14/22 20:23 Primary Reason for Your Visit: Facial Numbness Attending Provider: Monica Casarez Primary Care Provider: Dhaval Huerta Consulting Providers: Wolfgang Brambila Discharge Orders/Prescriptions Prescriptions: New atorvastatin 40 mg Tablet 80 mg PO 2200 30 Days Qty: 60 0RF aspirin 81 mg Tablet,Chewable 81 mg PO DAILY@0800 30 Days Qty: 30 0RF Continued acetaminophen [Tylenol Extra Strength] 500 mg tablet 1,000 mg PO QHS PRN (Reason: Pain) lisinopril 10 MG tablet 20 mg PO DAILY meloxicam 15 mg tablet 15 mg PO QHS pioglitazone 15 mg tablet 15 mg PO DAILY Held metformin 500 MG tablet 500 mg PO BIDCM Hold Instructions: Resume on 04/17/22. Discontinued atorvastatin 40 mg tablet 40 mg PO DAILY Referrals / Follow Up: Lionel Connolly MD [Non-Staff] - Within 2 Weeks Diego Torres MD [Med Staff - Courtesy Staff] - Within 2 Weeks Dhaval Huerta MD [Primary Care Provider] - Disposition Disposition (needs filled in before D/C Order can be placed): Home, Self Care Documented by User: Dr. Monica Casarez DO 04/15/22 14:50 Providers Date of Admission: 04/14/22 Reason For Visit: STROKE LIKE SYMMTOMS Diagnosis Discharge Diagnosis (1) Paresthesias: Status: Acute Code(s): R20.2 - Paresthesia of skin (2) Stroke-like symptom: Status: Acute Code(s): R29.90 - Unspecified symptoms and signs involving the nervous system (3) Type 2 diabetes mellitus: Status: Chronic Code(s): E11.9 - Type 2 diabetes mellitus without complications (4) Benign hypertension: Status: Chronic Code(s): I10 - Essential (primary) hypertension Medications at Discharge Home Medications lisinopril 10 mg tablet 20 mg PO DAILY 04/28/14 metformin 500 mg tablet 500 mg PO BIDCM 04/28/14 acetaminophen 500 mg tablet (Tylenol Extra Strength) 1,000 mg PO QHS PRN Pain 03/17/20 meloxicam 15 mg tablet 15 mg PO QHS 04/14/22 pioglitazone 15 mg tablet 15 mg PO DAILY 04/14/22 aspirin 81 mg chewable tablet 81 mg PO DAILY@0800 30 days #30 tabs 04/15/22 atorvastatin 40 mg tablet 80 mg PO 2200 30 days #60 tabs 04/15/22 Hospital Course Procedures - (MRI brain/MRA head and neck) Summary of Care Provided Minutes Spent on Discharge: 37 Hospital Course: Ms. Allen is a 62-year-old white female who presented to the emergency department on 04/14/2022 complaining of left-sided facial tingling/numbness and left arm tingling/numbness. She had this previously and it seems to be episodic. She has a history of TIA remotely and chronic left-sided leg weakness secondary to lumbar radiculopathy. She reported that her symptoms started approximately 3 hours prior to presentation. She denies any difficulty with speaking or swallowing and denies any new weakness in her extremities. She was evaluated the emergency department by [facility] and they recommended admission for stroke/TIA. Patient has not on aspirin at baseline and did not follow-up with neurology after her last TIA. Her blood pressure was well controlled throughout her hospital course. Her CBC was unremarkable. Her chemistry panel was unremarkable. We did obtain a hemoglobin A1c as she is diabetic at baseline and it was 9.0 indicating poor control. Her cholesterol showed a total cholesterol of 258 and they were unable to calculate LDL secondary to severe hypertriglyceridemia with a triglyceride level of 681, HDL was 35. She is on a statin at 40 mg at baseline. I do suspect she has severe hypertriglyceridemia related to poor blood sugar control. Given these findings, her statin was increased from 40 mg to 80 mg daily. We also started her on a baby aspirin during her hospital course. Her echocardiogram showed an EF of 60% with mild concentric LVH and mild left atrial enlargement, she had no evidence of diastolic dysfunction and she has a negative bubble study. MRI of the brain shows no evidence of acute infarct. I have her head and neck were negative for any significant stenosis or large vessel occlusion. That her symptoms were resolved and her imaging was negative we did feel she was stable for discharge. We did start her on 81 mg aspirin daily as she was not taking this at home. We also increased her statin from 40 mg to 80 mg and recommend she follow-up as an outpatient with endocrinology as her blood sugar control is fairly poor and increases her risk for further complications related to uncontrolled hyperglycemia. We also made a referral to neurology and gave her contact information for follow-up. Discharge diagnoses: Left-sided paresthesias-resolved Uncontrolled hyperlipidemia Hypertriglyceridemia Hypertension Diverticulosis History of TIA Arthritis Physical Exam Narrative Patient reports that paresthesias on the left side of her face have resolved. She complained of what sounds to be like anxiety prior to the MRI so we were able to medicate her and obtain the MRI. Const alert, oriented x3, no apparent distress and well nourished Constitutional Narrative: Upper middle-aged white female brushing her teeth, ambulates independent without any deficits, appears well, nontoxic General Appearance: cooperative HEENT normocephalic, head/scalp atraumatic and moist oral mucous membranes HEENT Narrative: Mallampati 3, no thrush Eyes PERRL and EOMs intact bilaterally Eyes Narrative: No scleral icterus, conjunctive are normal Neck no lymphadenopathy, supple, thyroid normal and no carotid bruits General: trachea midline Resp normal respiratory effort, normal air movement and clear to auscultation bilaterally Auscultation: Negative for rales, rhonchi, wheezes or diminished lung sounds Cardio regular rate, regular rhythm, S1 normal heart sound, S2 normal heart sound, no murmurs, no rub, no gallops and peripheral pulses 2+ throughout GI normal to inspection, nondistended, normoactive bowel sounds, soft to palpation, non-tender and non-distended Extremity normal capillary refill, no clubbing, cyanosis or edema and no calf tenderness Extremity Narrative: Pedal pulses are 2+ Skin no rashes or lesions noted, no wounds, skin turgor normal, no jaundice, no petechiae and no mottling Neuro CN's II-XII intact bilaterally, no focal motor deficits and no sensory deficits noted Neuro Narrative: Equal and symmetrical movement bilaterally Speech: speech normal Gait (Neuro): normal gait Motor Exam: strength 5/5 throughout Psych affect normal Psych Narrative: Appears mildly anxious ABG / Lab / Microbiology Data Result Diagrams: 04/15/22 06:10 04/15/22 06:10 Discharge Plan Admission Admit Date/Time: 04/14/22 20:23 Primary Reason for Your Visit: Facial Numbness Attending Provider: Monica Casarez Primary Care Provider: Dhaval Huerta Consulting Providers: Wolfgang Brambila Discharge Orders/Prescriptions Prescriptions: New atorvastatin 40 mg Tablet 80 mg PO 2200 30 Days Qty: 60 0RF aspirin 81 mg Tablet,Chewable 81 mg PO DAILY@0800 30 Days Qty: 30 0RF Continued acetaminophen [Tylenol Extra Strength] 500 mg tablet 1,000 mg PO QHS PRN (Reason: Pain) lisinopril 10 MG tablet 20 mg PO DAILY meloxicam 15 mg tablet 15 mg PO QHS pioglitazone 15 mg tablet 15 mg PO DAILY Held metformin 500 MG tablet 500 mg PO BIDCM Hold Instructions: Resume on 04/17/22. Discontinued atorvastatin 40 mg tablet 40 mg PO DAILY Referrals / Follow Up: Lionel Connolly MD [Non-Staff] - Within 2 Weeks Diego Torres MD [Med Staff - Courtesy Staff] - Within 2 Weeks Dhaval Huerta MD [Primary Care Provider] - Disposition Disposition (needs filled in before D/C Order can be placed): Home, Self Care Charges/Coding Visit Charges Inpatient E&M: 65007 Disch Hosp
--- NOTE | 2022-04-15 14:05 | CASEMGMT ---
This RN CM to room to discuss d/c plan with pt and pt states no concerns with going home at time of discharge. Pt states has been independent in room. Pt voices no further questions/concerns/needs. SStaten RN CM
--- NOTE | 2022-04-15 14:32 | PHA.DC.MC ---
Pharmacy Service has performed discharge medication reconciliation and counseling for this patient. 1. ASPIRIN 81MG PO DAILY The patient's discharge medication list was reviewed for discrepancies and discrepancies were resolved. Home Medications lisinopril 10 mg tablet 20 mg PO DAILY 04/28/14 metformin 500 mg tablet 500 mg PO BIDCM 04/28/14 acetaminophen 500 mg tablet (Tylenol Extra Strength) 1,000 mg PO QHS PRN Pain 03/17/20 meloxicam 15 mg tablet 15 mg PO QHS 04/14/22 pioglitazone 15 mg tablet 15 mg PO DAILY 04/14/22 aspirin 81 mg chewable tablet 81 mg PO DAILY@0800 30 days #30 tabs 04/15/22 atorvastatin 40 mg tablet 80 mg PO 2200 30 days #60 tabs 04/15/22 The patient was counseled on the following discharge medications and changes in medications for homegoing were reviewed. The Reason for Use, instructions for use, and potential side effects were reviewed for all new medications. The patient's questions regarding all of their medications were answered. The patient was able to verbally demonstrate an understanding of their discharge medications. Patient counseled by pharmacy general managerTony.
[2022-04-21 07:16] LABS: Bedside Glucose 233 mg/dL (74-106)
== END 2022-04-15 13:50 | disposition home or self-care (01) ==
LOC: ED 20:38 → PCU 20:45
PROVIDERS: Admitting Provider Hospitalist; Emergency Provider Emergency Medicine; PCP Internal Medicine; Visit Provider Internal Medicine
DX: R20.2 Paresthesia of skin (principal); E11.9 Type 2 diabetes mellitus without complications; M19.90 Unspecified osteoarthritis, unspecified site; E78.5 Hyperlipidemia, unspecified; M54.30 Sciatica, unspecified side; Z79.84 Long term (current) use of oral hypoglycemic drugs; I10 Essential (primary) hypertension; Z79.899 Other long term (current) drug therapy; Z82.49 Family history of ischemic heart disease and other diseases of the circulatory system; R47.81 Slurred speech; R53.1 Weakness
CPT/HCPCS: Q9957; 36415; 70450; 70544; 70547; 70551; 71045; 80048; 80061; 82962; 83036; 84484; 85025; 85610; 85730; 93005; 93306; 94762; 99218; 99285; J7030; A4216; G0378

== ENCOUNTER 2023-08-29 09:26 | Emergency (ER) | payer MEDICAID, SELFPAY ==
[2023-08-29 09:27] VITALS: BP 140/65; PULSE 79; RESP 14; TEMP 36.1; O2SAT 98; BMI 36.4
--- NOTE | 2023-08-29 09:42 | CT_ITS ---
STUDY: CT ABDOMEN AND PELVIS WITHOUT CONTRAST REASON FOR EXAM: Female, 63 years old. right flank pain RADIATION DOSAGE (If Supplied By Facility): CTDIvol = ( 22.96 ) mGy, DLP = ( 1095.41 ) mGycm TECHNIQUE: Transaxial images were obtained from the dome of the diaphragm to the symphysis pubis without oral contrast, and without intravenous contrast. Sagittal and coronal images were reconstructed. Individualized dose optimization techniques were used for this CT. COMPARISON: 01/01/2022 FINDINGS: The visualized lung bases are unremarkable. The visualized portions of the heart are within normal limits. There is decreased attenuation of the liver consistent with steatosis. There is non-visualization of the gallbladder, which may be secondary to either contraction or a prior cholecystectomy. Normal spleen. Normal pancreas. There is a small, stable 0.94 cm low attenuation left adrenal mass, consistent with an adrenal adenoma. Normal right adrenal gland. No obstructive uropathy, or suspicious solid renal lesion. Normal visualized stomach. Normal small intestine. Normal colon. The appendix is visualized and appears normal. Appendix seen on coronal recon images 41 through 45 There is diffuse atherosclerotic calcification of the abdominal aorta, without a demonstrated aneurysm. Normal inferior vena cava. Normal retroperitoneum. Normal urinary bladder. Normal abdominal wall. There are diffuse degenerative changes of the visualized lumbar spine. CT/Abdomen/Pelvis without Cont IMPRESSION: No obstructive uropathy or suspicious solid renal lesion Fatty liver, no discrete lesion Stable 0.94 cm left adrenal nodule likely adenoma. ACR White Paper guidelines (Bro et al. JACR 2017; 14(8):3412-8316) suggest no follow-up is necessary. No free intraperitoneal fluid, air, or suspicious adenopathy. Normal appendix visualized Electronically Signed: Papo Manjarrez MD at 10:33 EST ,
--- NOTE | 2023-08-29 09:45 | EX.ED.DYSGE1 ---
HPI History of Present Illness Chief Complaint: Flank Pain Informant: patient Onset/Context/Timing Onset: Weeks Context: Gradual Onset Timing: Waxes and wanes Narrative Narrative: Patient presents with about a week of right flank pain. She was seen by her doctor on Friday who noted she had blood in her urine. She was scheduled for an ultrasound but it cannot be performed for a few weeks. She does have a history of kidney stones, last occurring about 20 years ago. She is able to pass the stone on her own and never required surgery. She does not follow with a urologist. [facility] Medical History Arthritis Blood clot in vein Diabetes Diverticulitis High blood pressure High cholesterol Hypertension Neuropathy Numbness and tingling Sciatica TIA (transient ischemic attack) Home Medications lisinopril 10 mg tablet 20 mg PO DAILY 04/28/14 [History Last Taken 04/14/22 08:00] metformin 500 mg tablet 500 mg PO BIDCM 04/28/14 [History Last Taken 04/14/22] acetaminophen 500 mg tablet (Tylenol Extra Strength) 1,000 mg PO QHS PRN Pain 03/17/20 [History Last Taken 04/13/22] meloxicam 15 mg tablet 15 mg PO QHS 04/14/22 [History Last Taken 04/13/22] aspirin 81 mg chewable tablet 81 mg PO DAILY@0800 30 days #30 tabs 04/15/22 [Rx Last Taken Unknown] atorvastatin 40 mg tablet 80 mg (2 x 40 mg) PO 2200 30 days #60 tabs 04/15/22 [Rx Last Taken Unknown] cholecalciferol (vitamin D3) 50 mcg (2,000 unit) capsule 50 mcg PO DAILY #90 caps 05/30/22 [Rx Last Taken Unknown] gabapentin 300 mg capsule cap PO 05/30/22 [History Last Taken Unknown] glipizide 5 mg tablet, extended release 24 hr 5 mg PO BID #180 tabs 08/21/22 [Rx Last Taken Unknown] tramadol 50 mg tablet 50 mg PO Q8H PRN pain #14 tabs 08/29/23 [Rx Last Taken Unknown] Allergy/AdvReac Type Severity Reaction Status Date / Time fish oil Allergy Severe Swelling Verified 08/29/23 09:27 Penicillins Allergy Unknown Unknown Verified 08/29/23 09:27 codeine Allergy Rash Verified 08/29/23 09:27 ibuprofen Allergy Rash Verified 08/29/23 09:27 Iodinated Contrast Media Allergy PT UNSURE Verified 08/29/23 09:27 OF REACTION shellfish derived Allergy Anaphylaxis Verified 08/29/23 09:27 Sulfa (Sulfonamide Allergy Anaphylaxis Verified 08/29/23 09:27 Antibiotics) strawberry [[place]] AdvReac Rash Verified 08/29/23 09:27 Family History Mother Diabetes Father Diabetes Sister Diabetes Other Hypertension Surgical History History of partial hysterectomy Hx of cholecystectomy Social History Smoking Status: Never smoker second hand exposure: No alcohol intake: never substance use type: does not use caffeine: Yes what type of physical activity do you participate in: none frequency: does not exercise ROS ROS ED Constitutional Constitutional ED: Denies chills or fever(s) Eyes Eyes: Denies change in vision or discharge from eye(s) ENT ENT ED: Denies discharge from eye(s), rhinorrhea or sore throat Cardiovascular Cardiovascular: Denies chest pain or palpitations Respiratory/Chest Respiratory/Chest: Denies cough or dyspnea Gastrointestinal Gastrointestinal: Reports abdominal pain and nausea; Denies diarrhea or vomiting Genitourinary Genitourinary ED: Reports hematuria; Denies dysuria Musculoskeletal Musculoskeletal: Reports back pain; Denies extremity pain Integumentary Denies Abrasions or rash Neurologic Neurologic: Denies headache(s) or weakness Psychiatric Psychiatric: Denies anxiety or depression Allergic/Immunologic Allergic/Immunologic ED: Denies lip swelling or urticaria EXAM Physical Exam Const Vital Signs: 08/29/23 09:27 08/29/23 11:48 Temperature 96.9 F L Temperature Source Temporal Pulse Rate 79 75 Respiratory Rate 14 16 Blood Pressure 140/65 H 137/63 H Blood Pressure Mean 90 87 Pulse Ox 98 96 Oxygen Delivery Method Room Air Positive well nourished and well developed General Appearance ED: well developed HEENT Reports moist mucous membranes Eyes EOMs intact bilaterally Chest Wall inspection of chest normal and palpation of chest normal Resp normal respiratory effort and clear to auscultation bilaterally Cardio regular rate and regular rhythm GI GI Narrative: Abdomen soft and nontender. Hypoactive bowel sounds. Back/Spine General Back: CVA tenderness right Extremity normal to inspection Neuro oriented x3 and no sensory deficits noted Motor Exam: strength 5/5 throughout Psych mental status grossly normal Skin no rashes or lesions noted MDM MDM MDM Narrative Medical decision making narrative: IV line established. Patient given morphine and Zofran. She reports an allergy to ibuprofen and is unsure if she is ever had Toradol. Labwork obtained to evaluate for leukocytosis, anemia, and electrolyte derangement. Urinalysis obtained to evaluate for infection/hematuria. CT flank obtained to evaluate for possible kidney stone. History & Record Review Discussion w/independent historian: Patient Lab Data Attestation: I reviewed the patient's lab results. Labs: Laboratory Results - last 24 hr 08/29/23 08/29/23 09:40 10:25 WBC 6.5 RBC 4.91 Hgb 13.4 Hct 41.1 MCV 83.7 MCH 27.3 MCHC 32.6 RDW Std Deviation 42.3 RDW Coeff of Nael 13.9 Plt Count 251 MPV 9.6 Immature Gran % (Auto) 0.300 Neut % (Auto) 46.0 L Lymph % (Auto) 42.7 H [place] % (Auto) 7.1 Eos % (Auto) 3.1 Baso % (Auto) 0.8 Absolute Neuts (auto) 3.0 Absolute Lymphs (auto) 2.77 Nucleated RBC % 0 Sodium 138 Potassium 4.2 Chloride 106 Carbon Dioxide 24.0 Anion Gap 8 BUN 12 Creatinine 0.62 Estim Creat Clear Calc 80.20 Est GFR (MDRD) Af Amer 125 Est GFR (MDRD) Non-Af 104 BUN/Creatinine Ratio 19.4 Glucose 163 H Calcium 8.9 Urine Color Straw Urine Clarity Clear Urine pH 6.0 Ur Specific [place] 1.010 Urine Protein Negative Urine Glucose (UA) Normal Urine Ketones Negative Urine Occult Blood Negative Urine Nitrite Negative Urine Bilirubin Negative Urine Urobilinogen Normal Ur Leukocyte Esterase Negative Urine RBC 0 SEEN Urine WBC 0 SEEN Ur Squamous Epith Cells 0-5 SEEN Urine Bacteria 0 SEEN Urine Mucus 0 SEEN Radiography Diagnostic Testing: Clinical Impression(s) from Imaging Studies Abdomen/Pelvis CT 08/29/23 09:42 IMPRESSION: No obstructive uropathy or suspicious solid renal lesion Fatty liver, no discrete lesion Stable 0.94 cm left adrenal nodule likely adenoma. ACR White Paper guidelines (Bro, et al. JACR 2017; 14(8):7572-7571) suggest no follow-up is necessary. No free intraperitoneal fluid, air, or suspicious adenopathy. Normal appendix visualized Electronically Signed: Papo Manjarrez MD at 10:33 EST , Treatment and Re-Evaluation :: Patient declined pain medication here as she was hoping to drive herself home. Her white count is normal at 6.5 with normal differential. Hemoglobin normal at 13.4. Chemistry studies remarkable only for glucose of 163. Renal function is normal. Urinalysis reveals no evidence of infection. No hematuria at this time. CT of the flank reveals no evidence of obstructive uropathy or suspicious renal lesion. There is a stable left adrenal nodule. Test results are discussed with the patient. She may have had a small kidney stone that has passed and she reportedly did have blood in her urine a few days ago. I advised her that she can still have some spasm in the ureter that causes pain. She may also have musculoskeletal back pain. She said this does not feel like her typical sciatica. She will be given a short course of tramadol for pain. She be referred to urology for follow-up as needed. Return instructions are given. Discharge Plan Triage Chief Complaint: Flank Pain Other Complaint: Female C/O ED Provider: Angela Interiano Dx/Rx/DC Orders Clinical Impression: Acute right flank pain Instructions: ED Flank Pain, Uncertain Cause Prescriptions: New tramadol 50 mg tablet 50 mg PO Q8H PRN (Reason: pain) Qty: 14 0RF No Action acetaminophen [Tylenol Extra Strength] 500 mg tablet 1,000 mg PO QHS PRN (Reason: Pain) gabapentin 300 mg capsule PO cholecalciferol (vitamin D3) 50 mcg (2,000 unit) capsule 50 mcg PO DAILY Qty: 90 3RF glipizide 5 mg tablet extended release 24hr 5 mg PO BID Qty: 180 1RF metformin 500 MG tablet 500 mg PO BIDCM Hold Instructions: Resume on 04/17/22. lisinopril 10 MG tablet 20 mg PO DAILY meloxicam 15 mg tablet 15 mg PO QHS atorvastatin 40 mg Tablet 80 mg PO 2200 30 Days Qty: 60 0RF aspirin 81 mg Tablet,Chewable 81 mg PO DAILY@0800 30 Days Qty: 30 0RF Primary Care Provider: Dhaval Huerta Referrals: Marlene Tariq MD [Med Staff - Active Staff] - As Needed Dhaval Huerta MD [Primary Care Provider] - Disposition Disposition: Home, Self Care
[2023-08-29] MEDS: Ondansetron 4 MG/2 ML Vial IV (09:50)
[2023-08-29 09:51] LABS: Absolute Lymphocyte Count 2.77 X10^3/uL (0.83-4.51); Basophil# 0.05 X10^3/uL; Basophil% 0.8 % (0-1); Eosinophils% 3.1 % (0-5); Hematocrit 41.1 % (37-47); Hemoglobin 13.4 g/dL (12.0-15.0); Lymphocyte # 2.77 X10^3/ul (0.83-4.51); Lymphocyte % 42.7 % (19-41); Mean Corp Hgb Conc 32.6 g/dL (32-36); Mean Corpuscular Hgb 27.3 pg (27.0-32.0); Mean Corpuscular Volume 83.7 fL (81-99); Mean Platelet Vol. 9.6 fl (6.2-12.0); Monocyte# 0.46 X10^3/uL; Monocyte% 7.1 % (0-10); NRBC Flagged by Analyzer 0 % (0-5); Neutrophil # 2.99 X10^3/uL (2.7-7.7); Platelet Count 251 K/mm3 (150-450); RBC Distribution Width CV 13.9 % (11.6-14.6); RBC Distribution Width SD 42.3 fl (35.1-43.9); Red Blood Count 4.91 M/mm3 (4.2-5.4); White Blood Count 6.5 K/mm3 (4.4-11.0)
[2023-08-29 10:08] LABS: Anion Gap 8 (5-15); BUN 12 mg/dL (7-18); BUN/Creat Ratio 19.4 RATIO (10-20); Calcium,Total 8.9 mg/dL (8.5-10.1); Chloride 106 mmol/L (98-107); Creatinine, Serum 0.62 mg/dL (0.55-1.02); EST Glomerular Filtration Rate 104 mL/min (>60); Est Glom Filt Rate - Afr Amer 125 mL/min (>60); Glucose 163 mg/dL (74-106); Potassium 4.2 mmol/L (3.5-5.1); Sodium Level 138 mmol/L (136-145)
[2023-08-29] MEDS: 0.9% Normal Saline (1000mL) 1,000 ML 150 ML IV (10:31)
[2023-08-29 10:32] LABS: Bacteria 0 SEEN /hpf (None Seen); Mucous, Urine 0 SEEN /hpf (<or=2+); Red Blood Cells-Urine 0 SEEN /hpf (0-5); White Blood Cells 0 SEEN /hpf (0-5)
[2023-08-29 10:33] LABS: Color, Urine Straw (Yellow); Glucose, Dipstick Normal (Normal); Ketone-Dipstick Negative (Negative); Leukocyte Esterase-Dipstick Negative /ul (Negative); Nitrite-Dipstick Negative (Negative); Occult Blood-Urine Negative /ul (Negative); Protein-Dipstick Negative (Negative); Urine Bilirubin Dipstick Negative (Negative); Urine Clarity Clear (Clear); Urine Urobilinogen Normal (Normal)
[2023-08-29 11:17] LABS: Squamous Epithelial Cells - UA 0-5 SEEN /hpf (5-10)
[2023-08-29 11:48] VITALS: BP 137/63; PULSE 75; RESP 16; O2SAT 96
== END 2023-08-29 12:08 | disposition home or self-care (01) ==
PROVIDERS: Emergency Provider Emergency Medicine; PCP Internal Medicine; Visit Provider Emergency Medicine
DX: R10.9 Unspecified abdominal pain (principal); E11.9 Type 2 diabetes mellitus without complications; I10 Essential (primary) hypertension; E78.00 Pure hypercholesterolemia, unspecified; Z86.73 Personal history of transient ischemic attack (TIA), and cerebral infarction without residual deficits; Z79.899 Other long term (current) drug therapy; Z79.82 Long term (current) use of aspirin; Z79.84 Long term (current) use of oral hypoglycemic drugs; Z90.710 Acquired absence of both cervix and uterus; Z90.49 Acquired absence of other specified parts of digestive tract
CPT/HCPCS: 74176; 80048; 81001; 85025; 96361; 96374; 99284; A4216; J2405

== ENCOUNTER 2025-06-06 14:17 | Emergency (ER) | payer MEDICARE, MEDICAID, SELFPAY ==
[2025-06-06 14:20] VITALS: BP 139/58; PULSE 93; RESP 18; TEMP 37.2; O2SAT 94; BMI 35.3
--- NOTE | 2025-06-06 14:42 | CT_ITS ---
PROCEDURE: ABDOMEN/PELVIS WITHOUT CONT 06/06/2025 REASON FOR EXAM: LLQ ABD PAIN TECHNIQUE: Procedure Code: [id number] Modality: CT Procedure: ABDOMEN/PELVIS WITHOUT CONT Noncontrast technique limits evaluation of the abdominal and pelvic viscera. Coronal and Sagittal reconstruction series were provided. One or more dose reduction techniques were used (e.g., Automated exposure control, adjustment of the mA and/or kV according to patient size, use of iterative reconstruction technique). RADIATION DOSE SUMMARY: DLP: 973 mGycm COMPARISON: None FINDINGS: Limited sections of the lung bases demonstrate no focal pulmonary mass or consolidations. The liver, spleen, pancreas, and both adrenal glands demonstrate no acute findings. Mild hepatomegaly. No acute The gallbladder is unremarkable. The stomach is unremarkable. The small bowel loops are not dilated. The appendix is not clearly identified, although there are no secondary signs of appendicitis. No colonic obstruction. There is no free air or significant free fluid. The kidneys are unremarkable. The urinary bladder is partially distended. The pelvic structures are intact. Uterus is surgically removed. No significant lymphadenopathy. The aorta and IVC demonstrate no acute findings. Mild atherosclerosis of the abdominal vasculature. Visualized osseous structures demonstrate no acute abnormality. CT/Abdomen/Pelvis without Cont IMPRESSION: No acute intra-abdominal process. Reading Location: [id number]
--- NOTE | 2025-06-06 14:43 | EX.ED.DYSGE1 ---
HPI History of Present Illness Chief Complaint: General Illness Narrative Narrative: Patient is a 65-year-old female with a history of DM and HTN presenting with weakness, tremors, and productive cough. - Symptoms began on Friday, prompting a same-day appointment at [place]; underwent testing for COVID-19, RSV, and influenza A/B. - Reports feeling weak and shaky, with concerns about safety at home and while driving. - This morning, blood glucose was 224 mg/dL; later measured at 175 mg/dL, but tremors persist. - Denies recent sick contacts. - Reports productive cough with green sputum; denies fever, nausea, emesis, or diarrhea. - Denies chest pain, palpitations, or dyspnea. - Denies dysuria, hematuria, or increased urinary frequency, but notes urinary incontinence during coughing episodes. - Denies history of COPD, asthma, tobacco use, alcohol use, or drug use. - Denies diplopia; reports mild headaches. - Has neuropathy. [facility] Medical History High cholesterol Blood clot in vein Neuropathy High blood pressure Diverticulitis TIA (transient ischemic attack) Sciatica Hypertension Numbness and tingling Arthritis Diabetes Home Medications ?Medication ?Instructions ?Recorded ?Last Taken ?Type acetaminophen 500 mg tablet 1,000 mg PO QHS PRN Pain 03/17/20 04/13/22 History (Tylenol Extra Strength) aspirin 81 mg chewable tablet 81 mg PO DAILY@0800 30 days #30 04/15/22 Unknown Rx tabs cholecalciferol (vitamin D3) 50 50 mcg PO DAILY #90 caps 05/30/22 Unknown Rx mcg (2,000 unit) capsule lisinopril 20 mg tablet 20 mg PO DAILY HTN 06/06/25 Unknown History metformin 500 mg tablet,extended 500 mg PO QPM DM 06/06/25 Unknown History release 24 hr Allergy/AdvReac Type Severity Reaction Status Date / Time fish oil Allergy Severe Swelling Verified 08/29/23 09:27 Penicillins Allergy Unknown Unknown Verified 08/29/23 09:27 codeine Allergy Rash Verified 08/29/23 09:27 ibuprofen Allergy Rash Verified 08/29/23 09:27 Iodinated Contrast Media Allergy PT UNSURE Verified 08/29/23 09:27 OF REACTION shellfish derived Allergy Anaphylaxis Verified 08/29/23 09:27 Sulfa (Sulfonamide Allergy Anaphylaxis Verified 08/29/23 09:27 Antibiotics) strawberry ([place]) AdvReac Rash Verified 08/29/23 09:27 Family History Mother Diabetes Father Diabetes Sister Diabetes Other Hypertension Surgical History History of partial hysterectomy Hx of cholecystectomy Social History Smoking Status: Never smoker second hand exposure: No alcohol intake: never substance use type: does not use caffeine: Yes what type of physical activity do you participate in: none frequency: does not exercise ROS ROS ED ROS Narrative Constitutional: (+) generalized weakness, (-) fever Head: (+) headache Eyes: (-) diplopia Cardiovascular: (-) chest pain, (-) palpitations Respiratory: (+) productive cough with green sputum Gastrointestinal: (-) nausea, (-) vomiting, (-) diarrhea Genitourinary: (+) urinary frequency, (-) dysuria, (-) hematuria Neurological: (+) tremor EXAM Physical Exam Narrative Exam Narrative: General: Patient lying in bed rest comfortably did not appear to be acute distress Head: Atraumatic, normocephalic Eyes: PERRL bilaterally, EOMI bilaterally, no conjunctival injection noted Neck: Soft, supple, trachea midline Cardiovascular: Regular rate and rhythm Respiratory: Clear to auscultation bilaterally Abdomen: Soft, nondistended, tenderness to palpation left lower quadrant no rebound or guarding on exam Extremities: +5/5 strength noted in the bilateral lower extremities Neurological: Patient following commands that she is at [facility] year is 2024. NIH of 0 GCS 15 Skin: Warm, dry, intact no rashes or lesions noted Const Vital Signs: 06/06/25 14:20 06/06/25 14:26 06/06/25 15:32 Temperature 98.9 F 99.5 F H Temperature Source Oral Oral Pulse Rate 93 92 Respiratory Rate 18 24 H Respiratory Effort Short of Breath Respiratory Pattern Normal Blood Pressure 139/58 H 141/60 H Blood Pressure Mean 85 87 Pulse Ox 94 100 Oxygen Delivery Method Room Air Room Air MDM MDM MDM Narrative Medical decision making narrative: Patient is a 65-year-old female who presents to the emergency department chief complaint of generalized weakness and feeling under the weather. On the differential diagnose includes but limited to viral gastroenteritis, diverticulitis, pneumonia, DKA. Once the workup is obtained reviewed she will be reevaluated. Patient was given IV fluids. Patient eloped prior to her full workup returning. I did review her results. Patient's BMP reviewed and showed a sodium 136, potassium was 4.2, creatinine 0.59. Patient AST and ALT are 30 and 18 respectively. Patient lipase normal at 23, urinalysis reviewed showed no evidence of infection. Patient CT abdomen and pelvis without contrast that she was refusing the contrast showed no acute intra-abdominal processes. Lab Data Labs: Laboratory Results - last 24 hr 06/06/25 06/06/25 06/06/25 15:00 15:00 15:40 WBC Cancelled Corrected WBC Cancelled RBC Cancelled Hgb Cancelled Hct Cancelled MCV Cancelled MCH Cancelled MCHC Cancelled RDW Std Deviation Cancelled RDW Coeff of Nael Cancelled Plt Count Cancelled MPV Cancelled Immature Gran % (Auto) Cancelled Neut % (Auto) Cancelled Lymph % (Auto) Cancelled [place] % (Auto) Cancelled Eos % (Auto) Cancelled Baso % (Auto) Cancelled Absolute Neuts (auto) Cancelled Absolute Lymphs (auto) Cancelled Total Counted Cancelled Neutrophils % (Manual) Cancelled Band Neutrophils % Cancelled Lymphocytes % (Manual) Cancelled Monocytes % (Manual) Cancelled Eosinophils % (Manual) Cancelled Basophils % (Manual) Cancelled Metamyelocytes % Cancelled Myelocytes % Cancelled Promyelocytes % Cancelled Blast Cells % Cancelled Plasma Cell % (Manual) Cancelled Other Cells % Cancelled Nucleated RBC % Cancelled Nucleated RBCs/100 WBC Cancelled Differential Comment Cancelled Diff Path Review Cancelled Hypersegmented Neuts Cancelled Atypical Lymphocytes Cancelled Reactive Lymphocytes Cancelled Smudge Cells Cancelled Toxic Granulation Cancelled Toxic Vacuolation Cancelled Dohle Bodies Cancelled Adalberto Rods Cancelled Platelet Estimate Cancelled Plt Morphology Comment Cancelled RBC Morphology Cancelled Cancelled Polychromasia Cancelled Hypochromasia Cancelled Basophilic Stippling Cancelled Anisocytosis Cancelled Microcytosis Cancelled Macrocytosis Cancelled Spherocytes Cancelled Sickle Cells Cancelled Target Cells Cancelled Tear Drop Cells Cancelled Ovalocytes Cancelled Stomatocytes Cancelled Romero-[place] Bodies Cancelled Lucina Cells Cancelled Bite Cells Cancelled Crenated Cell Cancelled Acanthocytes (Spur) Cancelled Rouleaux Cancelled Schistocytes Cancelled Sodium 136 Potassium 4.2 Chloride 98 Carbon Dioxide 24.9 Anion Gap 13 BUN 8 Creatinine 0.59 L Estim Creat Clear Calc 77.69 Est GFR (MDRD) Non-Af 100 BUN/Creatinine Ratio 13.0 Glucose 167 H Calcium 9.6 Total Bilirubin 1.02 AST 30 ALT 18 Alkaline Phosphatase 108 H Total Protein 8.1 Albumin 4.4 Globulin 3.7 Albumin/Globulin Ratio 1.2 Lipase 23 Urine Color Yellow Urine Clarity Clear Urine pH 6.5 Ur Specific [place] 1.010 Urine Protein 15 H Urine Glucose (UA) Normal Urine Ketones 5 H Urine Occult Blood Negative Urine Nitrite Negative Urine Bilirubin Negative Urine Urobilinogen Normal Ur Leukocyte Esterase Negative Urine RBC 0 SEEN Urine WBC 0-5 SEEN Ur Squamous Epith Cells 0-5 SEEN Urine Bacteria 0 SEEN Urine Mucus 0 SEEN Radiography Diagnostic Testing: Clinical Impression(s) from Imaging Studies Abdomen/Pelvis CT 06/06/25 14:42 IMPRESSION: No acute intra-abdominal process. Reading Location: [facility] Discharge Plan Triage Chief Complaint: General Illness ED Provider: Brian Chilel Dx/Rx/DC Orders Clinical Impression: Abdominal pain, Hyperglycemia Prescriptions: No Action acetaminophen [Tylenol Extra Strength] 500 mg tablet 1,000 mg PO QHS PRN (Reason: Pain) cholecalciferol (vitamin D3) 50 mcg (2,000 unit) capsule 50 mcg PO DAILY Qty: 90 3RF aspirin 81 mg Tablet,Chewable 81 mg PO DAILY@0800 30 Days Qty: 30 0RF lisinopril 20 mg tablet 20 mg PO DAILY metformin 500 mg tablet extended release 24 hr 500 mg PO QPM Primary Care Provider: Dhaval Huerta Referrals: Dhaval Huerta MD [Primary Care Provider, Internal Medicine] Print Language: Yakut Disposition Disposition: [facility] Discharge Date/Time: 06/06/25 16:15
[2025-06-06 15:32] VITALS: BP 141/60; PULSE 92; RESP 24; TEMP 37.5; O2SAT 100
[2025-06-06 15:44] LABS: AST(SGOT) 30 U/L (<=31); Alanine Aminotransfer ALT/SGPT 18 U/L (<=34); Albumin, Serum 4.4 g/dL (3.4-4.8); Alkaline Phosphatase 108 U/L (35-104); Anion Gap 13 (5-15); BUN 8 mg/dL (4-19); BUN/Creat Ratio 13.0 RATIO (10-20); Calcium,Total 9.6 mg/dL (7.6-11.0); Carbon Dioxide 24.9 mmol/L (21.0-32.0); Chloride 98 mmol/L (98-108); Estimated Creatinine Clearance 77.69 ml/min (50-250); Globulin 3.7 g/dL (2.2-4.2); Glucose 167 mg/dL (70-99); Lipase 23 U/L (13-75); Potassium 4.2 mmol/L (3.3-5.1)
[2025-06-06 15:52] LABS: Mucous, Urine 0 SEEN /hpf (<or=2+); Red Blood Cells-Urine 0 SEEN /hpf (0-5)
--- NOTE | 2025-06-06 15:55 | ED.RN ---
PT. INSTRUCTED NEED FOR MORE BLOOD WORK DUE TO THE FIRST SET HEMOLYZING. PT. ASKED THIS NURSE TO LEAVE STATING I JUST WANT TO GO HOME. I DON'T WANT POKED ANYMORE. PT. INFORMED THAT AN ULTRASOUND CAN BE USED TO ALLEVIATE DISCOMFORT AND DECREASE BLOOD WORK ATTEMPTS. PT. ASKED AGAIN TO BE DISCHARGED. PROVIDER TO BE NOTIFIED.
[2025-06-06 15:56] LABS: Color, Urine Yellow (Yellow); Glucose, Dipstick Normal (Normal); Ketone-Dipstick 5 mg/dl (Negative); Leukocyte Esterase-Dipstick Negative /ul (Negative); Nitrite-Dipstick Negative (Negative); Occult Blood-Urine Negative /ul (Negative); Protein-Dipstick 15 mg/dl (Negative); Specific Gravity, Urine 1.010 (1.002-1.030); Urine Bilirubin Dipstick Negative (Negative)
[2025-06-06 16:05] LABS: Squamous Epithelial Cells - UA 0-5 SEEN /hpf (5-10)
--- NOTE | 2025-06-06 16:12 | ED.RN ---
PT. ELOPEMENT FROM DEPARTMENT PRIOR TO PROVIDER EDUCATION REGARDING LEAVING AMA.
== END 2025-06-06 16:15 | disposition left against medical advice (07) ==
LOC: ED 15:15
PROVIDERS: Emergency Provider Emergency Medicine; PCP Internal Medicine; Visit Provider Emergency Medicine
DX: R10.9 Unspecified abdominal pain (principal); E11.10 Type 2 diabetes mellitus with ketoacidosis without coma; E11.40 Type 2 diabetes mellitus with diabetic neuropathy, unspecified; E11.65 Type 2 diabetes mellitus with hyperglycemia; E78.00 Pure hypercholesterolemia, unspecified; I10 Essential (primary) hypertension; Z90.710 Acquired absence of both cervix and uterus; R25.1 Tremor, unspecified; R53.1 Weakness; R05.9 Cough, unspecified; R35.0 Frequency of micturition; Z90.49 Acquired absence of other specified parts of digestive tract; Z86.73 Personal history of transient ischemic attack (TIA), and cerebral infarction without residual deficits; R51.9 Headache, unspecified
CPT/HCPCS: 74176; 80053; 81001; 83690; 87631; 96361; 96374; 99284; J2405